=== PATIENT | female | born 1930 | race Caucasian/White ===

== ENCOUNTER → 2016-11-22 | Outpatient (CLI) | payer OTHER ==
[~2016-11-22] MED LIST: ACETAMINOPHEN325 M1 PO; ALEVE220 MG PO; AMITIZA 24 MCG24 MC1 PO; AMLODIPINE BESYL5 MG PO; APAP500; BACTRIM DS TAB1 EACH PO; BUTRANS1 EACH TD; COMBINATION CREAM; FENTANYL PA12 MCG/HR TP; FLECTOR PATCH1 EA TP; LACTULOSE10 GM/152 PO; LIDODERM 5%1 PATC1 TRANSDERM; LIDODERM 5%1 PATCH TOP; LISINOPRIL20 MG; LOPRESSOR25 PO; MACROBID 100 M100 M1 PO; NAPRELAN500 M1 PO; PAXIL10 MG; TYLENOL P.M. E1 EAC3 PO; TYLENOL PM EX-1 EACH PO; ULTRAM 50MG TAB50 MG PO; VIIBRYD10 MG; VIIBRYD10 MG PO; VOLTAREN GEL 1100 G1 TOP
== END ==
LOC: HYPER 07:09
DX: T81.33XA Disruption of traumatic injury wound repair, initial encounter (principal); L97.821 Non-pressure chronic ulcer of other part of left lower leg limited to breakdown of skin; I10 Essential (primary) hypertension; M19.90 Unspecified osteoarthritis, unspecified site; Z85.3 Personal history of malignant neoplasm of breast; Z85.51 Personal history of malignant neoplasm of bladder; Z87.891 Personal history of nicotine dependence

== ENCOUNTER → 2017-02-07 | Outpatient (CLI) | payer OTHER ==
[~2017-02-07] VITALS: Ht 154.9 cm; Wt 48.5 kg
[~2017-02-07] MED LIST changes: +MIRALAX255 GM PO
--- NOTE | ~2017-02-07 | HPC ---
[facility] [place] [address] PAIN MANAGEMENT CONSULTATION Name: BITA CLAY Room #: REG HARDIK Lanza.#: [id number] Admission: 02/07/17 Attend Phys: Miguel Olmos MD Discharge: Date of : 31 Report #: [id number] THIS REPORT FOR: //name// CC: Alison Olmos DATE OF SERVICE: 02/07/2017 Followup visit for chronic pain. New pain today in the right shoulder after a fall. The patient is here today with her daughter. She fell and injured her right upper back and shoulder. She has already fallen on that side, injured her right wrist and has a now healed clavicular fracture. She complains today of pain over the scapula, it is locally tender. It does not seem to involve the shoulder joint. MEDICATIONS: Butrans patch 5 mcg has been helpful. She also uses Flector patch once daily on her wrist and this has been very useful for someone who cannot take oral or systemic nonsteroidal anti-inflammatory drugs well. We have gone to great efforts to make sure that she has this available. The shoulder pain is locally tender overlying the spine and scapula. It radiates somewhat down into the deltoid region. PHYSICAL EXAMINATION: GENERAL: She is a ruslan 86-year-old pleasant, alert and oriented. She has local tenderness above the scapula. VITAL SIGNS: Her blood pressure is 139/76, heart rate 84, respirations 15, BMI is 20.2. EXTREMITIES: Examination of the right shoulder joint reveals good abduction, internal and external rotation is performed without difficulty. No tenderness around the joint capsule itself. IMPRESSION: Chronic scapular pain with suprascapular neuritis and myofascial pain. RECOMMENDATIONS: Suprascapular nerve block and trigger point injection. PROCEDURE: Skin was prepped with ChloraPrep. Skin was anesthetized and a 25-gauge needle was used to infiltrate above the scapula and the scapular notch, total of 8 mL of 0.5% bupivacaine mixed with 40 mg of triamcinolone. [facility] [address] [place] [address] PAIN MANAGEMENT CONSULTATION Name: BITA CLAY Room #: REG HARDIK Burden#: [id number] Admission: 02/07/17 Attend Phys: Miguel Olmos MD Discharge: Date of : 31 Report #: [id number] tolerated the procedure well. Pain was reduced at discharge and follow up as needed. By: [id number] Miguel Olmos MD /nt
[2017-02-07 12:44] VITALS: BP 139/76
== END ==
LOC: PAIN 06:44
DX: M25.511 Pain in right shoulder (principal); G58.8 Other specified mononeuropathies; M79.1 Myalgia; I10 Essential (primary) hypertension; Y93.89 Activity, other specified; Y92.89 Other specified places as the place of occurrence of the external cause; Y99.8 Other external cause status

== ENCOUNTER → 2017-08-03 | Outpatient (CLI) | payer OTHER ==
[~2017-08-03] VITALS: Ht 154.9 cm; Wt 48.8 kg
--- NOTE | ~2017-08-03 | HPC ---
[facility] [place] [address] [place] [address] PAIN MANAGEMENT CONSULTATION Name: BITA CLAY Room #: REG HARDIK LanzaLaura#: [id number] Admission: 08/03/17 Attend Phys: Mary Early MD Discharge: Date of : 31 Report #: [id number] THIS REPORT FOR: //name// CC: Alison Early DATE OF SERVICE: 08/03/2017 FOLLOWUP COMPLAINT: Pain in the lower portion of the back and kind of all over. FOLLOWUP HISTORY: The patient is an 87-year-old female who has been seen in the pain clinic in the past because of chronic pain and myofascial discomfort. At this juncture, she is having pain and discomfort, which is in the lower portion of her back. It is in the area of the posterior superior iliac spine area and the gluteus elisha bilaterally. She notes that the pain is limiting her ability to engage in activities. She feels that her pain is problematic. She had an epidural steroid injection about 4 years ago. She has returned to the pain clinic for evaluation with her daughter. PHYSICAL EXAMINATION: Blood pressure 161/79, pulse 79, respiratory rate 16, room air saturation 100, height 5 feet 1 inch, weight 107 pounds, BMI is 20. The patient is very feeble. Need some assistance with walking. She seem somewhat unstable on her feet. She has not fallen in the last 3 months. She notes pain and discomfort in the lower portion of her back on the left and right side. She denies pain radiating down into her legs at this juncture. Palpation of pain and discomfort in the left and right posterior superior iliac spine areas near the gluteus elisha and latissimus dorsi reproduce a significant component of her pain and discomfort. IMPRESSION: 1. Myofascial pain, low back area with reproduction of pain and discomfort through palpation in the area of the gluteus elisha and latissimus dorsi near the posterior superior iliac spine. 2. Significant arthritis. RECOMMENDATIONS: We discussed treatment options with the patient and her daughter. We explained that since she is not having pain or discomfort radiating down into her legs and trigger points are noted in her low back area, trigger point injections would be a reasonable option at this juncture. Risks and benefits of procedure were discussed with the patient and her daughter. They elect to proceed. PROCEDURE NOTE: The patient was placed in the sitting position. Her back was sterilely prepped with a chlorhexidine solution. The trigger point on the left near the posterior superior iliac spine and gluteus elisha/latissimus dorsi was [address] [address] PAIN MANAGEMENT CONSULTATION Name: BITA CLAY Room #: REG HARDIK Burden#: [id number] Admission: 08/03/17 Attend Phys: Mary Early MD Discharge: Date of : 31 Report #: [id number] palpated. This reproduced her discomfort. A 25-gauge needle was then advanced into the area of discomfort. The patient states that this did reproduce the pain and discomfort. Total of 40 mg triamcinolone and 8 mL of 0.25% bupivacaine was infiltrated. The contralateral right side was then sterilely prepped. A 25-gauge needle was advanced into the posterior superior iliac spine area. A reproduction of the patient's pain was noted. Total of 40 mg triamcinolone and 8 mL of 0.25% bupivacaine was injected. The patient tolerated the procedure well. She remained in the pain clinic for an appropriate amount of time. She will follow up in the near future as needed. A script for a Flector patch and Butrans patch were provided, patch was dispensed. She will follow up in the future as needed. Her daughter or she will call the pain clinic should they feel the need. We would like to thank you for letting us participate in her care. We hope she continues to improve. By: 1413 1620 Mary Early MD /DAVID
[2017-08-03 11:11] VITALS: BP 161/79
== END | disposition home or self-care (01) ==
LOC: PAIN 07:06
DX: M79.1 Myalgia (principal); M19.90 Unspecified osteoarthritis, unspecified site

== ENCOUNTER → 2017-09-15 | Outpatient (CLI) | payer OTHER ==
[~2017-09-15] VITALS: Ht 154.9 cm; Wt 48.0 kg
[~2017-09-15] MED LIST changes: +ARTHROTEC EC 51 EACH PO; +ASPIR 8181 MG PO; +BANOPHEN25 M1 PO; +CARBIDOPA-LEVO1 EAC1 PO; +CYMBALTA20 MG PO; +GABAPENTIN 100100 MG PO; +HOME MEDICATION TOP; +MOBIC7.5 MG PO; +VITAMIN B122500 MCG PO
--- NOTE | ~2017-09-15 | CRIT ---
[facility] [place] [address] [place] [address] CRITICAL CARE NOTE Name: BITA CLAY Room #: REG HARDIK Lanza.#: [id number] Admission: 09/15/17 Attend Phys: Miguel Olmos MD Discharge: Date of : 31 Report #: [id number] THIS REPORT FOR: //name// CC: Alison Olmos DATE OF SERVICE: 09/15/2017 CHIEF COMPLAINT: Low back pain with radiation into the hips. The patient returns to pain clinic today and is complaining of severe pain in her low back with radiation down into her hips. She also has chronic wrist and shoulder pain, which has been treated with medication and topical nonsteroidal anti-inflammatory drugs. She has a Butrans patch on, which we felt has provided some relief, but she has some constipation with it. She scores her pain as 10/10. PQRS reviewed. MEDICATIONS: Reviewed and reconciled. ALLERGIES: MORPHINE AND PROMETHAZINE. She does not have hypertension. She does not smoke nor use alcohol. She is receiving the opioid buprenorphine through a patch in the form of 5 mcg 7-day application. An opioid agreement has been established. In addition, she uses meloxicam and Flector patch. She is slender with a BMI of 20.0. PHYSICAL EXAMINATION: Flat affect is depressed and anxious. Blood pressure 171/83, heart rate 82, BMI is 20. She has tenderness in the back and positive straight leg raising bilaterally, reproducing discomfort into the buttocks, but no further. She has tenderness there. She has spondylosis of the spine with curvature appreciated and limited range of motion. IMPRESSION: Chronic low back pain with significant spondylosis and rotational scoliosis. She has degenerative disk disease at several levels, particularly at L4-L5 level. Mild spondylolisthesis. RECOMMENDATION: Epidural steroid injection under fluoroscopic guidance. Procedure was explained, the risks and benefits to the patient. She was taken to fluoroscopic suite for treatment, placed prone, skin prepped with ChloraPrep. Skin anesthetized over the L4-L5 interspace. A 20-gauge Tuohy epidural needle was advanced first attempt in the epidural space with loss of resistance. There [facility] [address] [place] [address] CRITICAL CARE NOTE Name: BITA CLAY Room #: REG [facility] Jenise#: [id number] Admission: 09/15/17 Attend Phys: Miguel Olmos MD Discharge: Date of : 31 Report #: [id number] was no blood or CSF aspirated. 1 mL of 0.5% lidocaine was injected along with 80 mg triamcinolone. She tolerated the procedure well and was observed for 45 minutes and discharged. Followup visit planned as needed. <ELECTRONICALLY SIGNED> By: Miguel Olmos MD 10/26/17 1640 1711 0124 Miguel Olmos MD /nt
[2017-09-15 13:29] VITALS: BP 171/83
== END | disposition home or self-care (01) ==
LOC: PAIN 07:32
DX: M54.16 Radiculopathy, lumbar region (principal); G89.29 Other chronic pain; M47.896 Other spondylosis, lumbar region; M51.36 Other intervertebral disc degeneration, lumbar region; M43.16 Spondylolisthesis, lumbar region; M41.86 Other forms of scoliosis, lumbar region; Z79.891 Long term (current) use of opiate analgesic; Z88.6 Allergy status to analgesic agent; Z88.8 Allergy status to other drugs, medicaments and biological substances

== ENCOUNTER → 2017-10-27 | Outpatient (CLI) | payer OTHER | LOC: MRI 15:05 | DX: M47.896 Other spondylosis, lumbar region (principal); M41.86 Other forms of scoliosis, lumbar region; M48.061 Spinal stenosis, lumbar region without neurogenic claudication ==

== ENCOUNTER → 2017-11-09 | Outpatient (CLI) | payer OTHER ==
[~2017-11-09] VITALS: Ht 160 cm; Wt 48.6 kg
--- NOTE | ~2017-11-09 | HPC ---
[facility] [address] [address] PAIN MANAGEMENT CONSULTATION Name: BITA CLAY Room #: REG HARDIK Lanza.#: [id number] Admission: 11/09/17 Attend Phys: Miguel Olmos MD Discharge: Date of : 31 Report #: [id number] THIS REPORT FOR: //name// CC: Miguel Florian MD DATE OF SERVICE: 11/09/2017 DATE OF REGISTRATION: 11/09/2017 The patient returns to the pain clinic today with her daughter. She used a bit of a hand wringer. She is worried about complaining about her pain. She scores her pain as a 10/10 and has multiple pain generators. Her pain is in her right wrist, right shoulder, low back. She has multiple osteoarthritic pain generators. We have been trying medications, but she is sensitive to nearly everything. We have transitioned to the nonsteroidal anti-inflammatory, meloxicam 7.5 mg taking one half tablet twice a day. We need to be cautious about that with her age and risks of GI bleeding. She also uses Flector patch, which we worked hard to try and obtain for her. She has been using the Butrans patch for opioid control and seems to tolerate that at 5 mcg. We have discussed a trial of increasing it to 10. She uses an Extra Strength Tylenol at bedtime. PHYSICAL EXAMINATION: She is anxious and depressed. Her blood pressure is 157/78, heart rate 89, respirations 16, BMI is 19. Multiple tenderness is noted in her neck, upper back, lower back, also in her wrist and in her right shoulder where she has decreased range of motion. IMPRESSION: 1. Osteoarthritis. 2. Chronic depression. 3. Management of high risk medications. RECOMMENDATIONS: We will keep trying. The patient is delightful and gentle soul. It is hard to watch her struggle. Unfortunately, other medications we have tried seemed to fail and she has too many diffuse pain generators to try and treat her with injections. Those that we have tried have not really provided much lasting relief other than the wrist, which has been helpful in the past. I have added Cymbalta 20 mg once a day to her regimen. It has known pain relieving benefits and I am hopeful that this will make a difference in her mood and perhaps her outlook as well as her pain. We will see her back in 3 months. All other medications were renewed under terms of our opioid agreement. <ELECTRONICALLY SIGNED> By: Miguel Olmos MD 12/05/17 1408 1659 26 Miguel Olmos MD /nt
[2017-11-09 12:59] VITALS: BP 157/78
== END ==
LOC: PAIN 07:10
DX: M19.90 Unspecified osteoarthritis, unspecified site (principal); F32.9 Major depressive disorder, single episode, unspecified; Z79.899 Other long term (current) drug therapy

== ENCOUNTER → 2018-01-10 | Outpatient (CLI) | payer OTHER ==
[~2018-01-10] MED LIST changes: -ASPIR 8181 MG PO; -BANOPHEN25 M1 PO; -CARBIDOPA-LEVO1 EAC1 PO; -GABAPENTIN 100100 MG PO; -HOME MEDICATION TOP; -VITAMIN B122500 MCG PO
== END ==
LOC: HYPER 06:45
DX: S51.812A Laceration without foreign body of left forearm, initial encounter (principal); I10 Essential (primary) hypertension; M19.90 Unspecified osteoarthritis, unspecified site; Z85.3 Personal history of malignant neoplasm of breast; Z85.51 Personal history of malignant neoplasm of bladder; Z87.891 Personal history of nicotine dependence; W19.XXXA Unspecified fall, initial encounter; Y93.89 Activity, other specified; Y92.89 Other specified places as the place of occurrence of the external cause; Y99.8 Other external cause status

== ENCOUNTER → 2018-02-27 | Outpatient (CLI) | payer OTHER ==
[~2018-02-27] VITALS: Ht 157.5 cm; Wt 45.0 kg
[~2018-02-27] MED LIST changes: +ASPIR 8181 MG PO; +VITAMIN B122500 MCG PO
--- NOTE | ~2018-02-27 | HPC ---
[facility] [address] [place] [address] PAIN MANAGEMENT CONSULTATION Name: BITA CLAY Room #: REG HARDIK LanzaLaura#: [id number] Admission: 02/27/18 Attend Phys: Miguel Olmos MD Discharge: Date of : 31 Report #: [id number] THIS REPORT FOR: //name// CC: Miguel Florian MD DATE OF SERVICE: 02/27/2018 Followup visit for upper back pain with myofascial components and bilateral sacroiliac joint pain. The patient returns with her daughter for renewal of her medication and also for injections. I provided with Cymbalta, and she is at the lowest dose I have seen at 10 mg. Her daughter breaks the capsule in half and spreads it on applesauce of the lowest dose, 20 mg capsule. I also provided with Butrans 5 mcg patches and these seem to be effective. We have been getting Flector patches for her, also, which we provide her as samples for the use on her wrist and this seems to help. I think she is better than she has been in the past. She has been more active. Her daughter said that she cleaned her garage this weekend. She does not seem quite as depressed and dramatic as she used to and I think the Butrans and Cymbalta combination seems to take credit for that. Today, she complains of pain along her right scapula. There are myofascial components with localized tenderness. She would like an injection there. Her pain is also in her low back. She has pain across her sacroiliac joints with very local tenderness, it does not radiate. PHYSICAL EXAMINATION AND PQRS REVIEW: She is a pleasant female with a history of significant osteoarthritis of the right wrist, left shoulder, right shoulder and spondylitic changes of the spine and sacroiliac joints. She is 5 feet 2 inches, 99 pounds with a BMI of 18.1, which is fairly normal for her. Her blood pressure is 143/93, heart rate 83 and she is not a fall risk. She has a history of hypertension. She is receiving Butrans patches, although she has not signed an opioid agreement. The patient has never smoked. Further physical exam findings revealed localized tenderness along the medial border of the right scapula. Pain is worse with use of her upper arm and reaching and grabbing. Specific trigger points are identified. Examination of the low back reveals pain with forward flexion, extension, rotation, but localized tenderness over the sacroiliac joints, it is fairly exquisite. Straight leg raising is negative for radicular symptoms. Sensation and strength [address] [address] PAIN MANAGEMENT CONSULTATION Name: BITA CLAY Room #: REG HARDIK Burden#: [id number] Admission: 02/27/18 Attend Phys: Miguel Olmos MD Discharge: Date of : 31 Report #: [id number] are normal in lower extremities. The Manpreet test is positive as well as Gaenslen's. IMPRESSION: Sacroiliac joint pain, bilateral and myofascial pain of the upper back. PLAN: I renewed her medications under terms of our written agreement. Injections today, sacroiliac joint, bilateral along with trigger point injection of the right scapula. The patient was taken to fluoroscopic suite, placed prone, skin prepped with ChloraPrep. Skin was anesthetized first on the right sacroiliac joint. A 25-gauge spinal needle was then advanced in the posterior inferior capsule. 0.25 mL of Omnipaque was injected to demonstrate an arthrogram. It was then followed by 1.5 mL of 0.25% bupivacaine mixed with 20 mg of triamcinolone. Needle was removed. Mirror image injection was then performed in the left using the same technique. She tolerated the injections well. She was then placed in the sitting position and then trigger points were identified along the medial border of the scapula. Each injected with a total of 3 mL of 0.5% bupivacaine mixed with a total of 10 mg of triamcinolone. A total of 15 mg of triamcinolone was utilized for these 2 injections. She was observed for a short time and discharged with prescriptions in hand. I plan to see her back in the pain clinic as needed. By: 1556 2111 Miguel Olmos MD /nt
[2018-02-27 12:50] VITALS: BP 143/93
== END | disposition home or self-care (01) ==
LOC: PAIN 06:46
DX: M53.3 Sacrococcygeal disorders, not elsewhere classified (principal); M79.1 Myalgia; G89.29 Other chronic pain; M19.90 Unspecified osteoarthritis, unspecified site; I10 Essential (primary) hypertension; Z88.8 Allergy status to other drugs, medicaments and biological substances; Z79.82 Long term (current) use of aspirin; Z79.899 Other long term (current) drug therapy
CPT/HCPCS: 20552; G0260

== ENCOUNTER → 2018-03-22 | Outpatient (CLI) | payer OTHER | LOC: RAD 12:25 | DX: J40 Bronchitis, not specified as acute or chronic (principal); M41.86 Other forms of scoliosis, lumbar region; I10 Essential (primary) hypertension ==

== ENCOUNTER 2018-06-04 14:25 | Inpatient (IN) | payer OTHER ==
[~2018-06-04] VITALS: Ht 160 cm; Wt 45.4 kg
--- NOTE | ~2018-06-04 | H ---
[facility] [place] [address] [address] HISTORY AND PHYSICAL Name: BITA CLAY Room #: 418-P ADM IN M.R.#: [id number] Admission: 06/04/18 Attend Phys: Conner Florian MD Discharge: Date of : 31 Report #: [id number] THIS REPORT FOR: //name// CC: Gino Callejas MD [facility] Miguel Florian MD DATE OF SERVICE: 06/04/2018 CHIEF COMPLAINT: Muscle spasms. HISTORY OF PRESENT ILLNESS: The patient is an 87-year-old female who about 3 days ago began noticing a foot tapping on the right side and repeated involuntary movements involving her right lower extremity and her right upper extremity. In fact, the symptoms do not involve the left side of her body whatsoever. No other significant symptoms. She did have a fall recently about a month ago. PAST MEDICAL HISTORY: Includes: 1. Breast cancer about 30 years ago. 2. Bladder cancer in the last 3-4 years (she was "clean" at her last cystoscopy and is not to return for a year; she had one dose of BCG and did not tolerate it and it was stopped and never repeated. She is on no other therapy for her bladder cancer). 3. Hypertension. 4. Generalized pain from osteoarthritis for which she follows with Dr. Miguel Olmos in the pain clinic. ALLERGIES: SHE IS ALLERGIC TO PROMETHAZINE, WHICH CAUSED HER CONFUSION AND MORPHINE, WHICH SHE WAS LISTED INTOLERANT. MEDICATIONS: Include vitamin B12 oral supplements, aspirin 81 mg chewable by mouth weekly, MiraLax 17 grams in water daily, naproxen half tablet by mouth daily p.r.n. pain, Tylenol/diphenhydramine half tablet at bedtime, lactulose 30 mL daily for constipation, Amitiza 24 mcg daily for chronic constipation, diclofenac patches daily, duloxetine 10 mg daily, and Butrans patch 5 mcg changed weekly. FAMILY HISTORY: Noncontributory. SOCIAL HISTORY: She is . She is a nonsmoker, nondrinker, has never used recreational drugs. Her daughter is with her during this visit today and she is very supportive. [facility] [address] [place] [address] HISTORY AND PHYSICAL Name: BITA CLAY Room #: 418-P [facility] IN M.R.#: [id number] Admission: 06/04/18 Attend Phys: Conner Florian MD Discharge: Date of : 31 Report #: [id number] REVIEW OF SYSTEMS: The patient denies any other significant new problems. In particular, there are no vision changes, no hearing changes, no headaches, no falls since that which happened in March and is documented in the Emergency Room visit of that date, no difficulty swallowing, no sore throat, no new neck pains. She has chronic back pain, which is unchanged. She has no shortness of breath or chest pain. She has no abdominal pain, no nausea or vomiting, no change in bowel or bladder habits recently. No vertigo, no confusion, and other than as listed in the history of present illness, no new symptoms. PHYSICAL EXAMINATION: VITAL SIGNS: Taken in the Emergency Room showed a pulse of 95 on arrival with a blood pressure of 95/74. The repeat blood pressure later on was significantly elevated at 173/79, respiratory rate on arrival was 18, temperature was 36.8 degrees Centigrade and the pulse oximetry on room air was 99%. The reported weight was 100 pounds. GENERAL: This is a well-developed, well-nourished elderly white female who is unable to lie still in bed, especially moving her right upper extremity. HEENT: The extraocular muscles are intact. Oropharynx is moist and pink without lesions or exudate. NECK: Supple. There is no adenopathy, thyromegaly or mass or bruit. LUNGS: Fairly clear bilaterally. CARDIAC: Reveals irregular rhythm without significant arrhythmia. ABDOMEN: Soft and benign. EXTREMITIES: Without cyanosis or clubbing or peripheral edema. Peripheral pulses easily palpated in all 4 distal extremities. NEUROLOGIC: The patient is alert. She is oriented to person, place and time. No hallucinations, no delusions. Affect is full. No focal deficits of sensation. She has a clearly difficulty with chorea involving the upper and lower extremities on the right side, athetosis not noted. Gait not reassessed. Cranial nerves 2-12 were intact. LABORATORY DATA: The patient had an EKG that was interpreted as sinus rhythm with left axis deviation, no evidence of infarct per ER note. I do not have access to the EKG itself at this time. On her chemistry, sodium is 125, potassium is 4.5, chloride is 91, bicarbonate is 28, BUN is 15, creatinine 0.9. The anion gap is 6 and slightly low. The estimated GFR is 59. The glucose nonfasting was 93, calcium was 9.2, magnesium was 2.3. The AST was 35, ALT was 32, alkaline phosphatase is 96 and those are all normal. CPK is slightly elevated at 334, but troponin was less than 0.06. The total protein was 6.6 and albumin was 3.7. On the CBC, white blood cell count was normal at 6900, hemoglobin is 12.5, hematocrit 35.4, red blood cell indices are normal. The differential shows 71% segmented neutrophils, 4% banded neutrophils, there are 12% lymphocytes, 10% monocytes, 3% eosinophils and the absolute neutrophil count was 5200. Urinalysis was completely normal and specific gravity was 1.010. CT scan of the head showed no acute intracranial process. 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 There is no family history of any conditions involving chorea. It is noteworthy that the patient was given Benadryl in the Emergency Room and had significant improvement in her symptoms. Current plan is to obtain MRI scan in the morning, have a formal Neurology consult (the Emergency Room physician spoke with Dr. Kasandra Agustin). Technically not an SSRI, duloxetine may have a role in her symptoms, but this appears unlikely given that she has been taking it for quite some time now and is on a ridiculously small dose of 10 mg per day. Nonetheless, it does provide her significant pain relief along with the Butrans patch and the Flector patch. 2. Hyponatremia, etiology is not clear. If she has syndrome of inappropriate antidiuretic hormone secretion, that might point to a renal or pulmonary or central nervous system problem. We will obtain chest x-ray and renal ultrasound tomorrow as well and will look at the serum and urine osmolality and electrolytes. 3. Hypertension. The highly variable readings in the Emergency Room deserve careful observation. I will not add antihypertensive medications at this time, but she may require them in the future. 4. History of malignancy of the breast and bladder. Formal staging especially of the bladder cancer might be useful. 5. Osteoarthritis with severe generalized pain syndrome. We will continue the patient's current regimen pending the rest of her workup at this time. <ELECTRONICALLY SIGNED> By: John Alvaregna MD 06/05/182016 26 07 John Alvarenga MD /nt
--- NOTE | ~2018-06-04 | EKG ---
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 : 1930 Requested By: Nina Reyes Order Number: [id number] MD: Jovani Huang Measurements Intervals [place] Rate: 81 P: 50 ID: [id number] QRS: -50 QRSD: 94 T: 42 QT: 407 QTc: 473 Interpretive Statements Sinus rhythm Left anterior hemiblock Compared to ECG 04/26/2018 16:05:12 atrial premature complexes are no longer present Electronically Signed On 06-05-2018 8:19:48 CDT by Jovani Huang [email or web address] <ELECTRONICALLY SIGNED> By: Jovani Huang MD, [facility] 06/05/18818 1714 171 Jovani Huang MD, [facility] /EPI
--- NOTE | ~2018-06-04 | HC ---
[facility] [place] [address] CONSULTATION Name: BITA CLAY Room #: 418-P [facility] IN M.R.#: [id number] Admission: 06/04/18 Attend Phys: Kathy Florian MD Discharge: 06/05/18 Date of : 31 Report #: [id number] THIS REPORT FOR: //name// CC: KATHY Florian HISTORY OF PRESENT ILLNESS: The patient is an 87-year-old female who presents with abnormal movements of the right side of the body. This began last and as the weekend progressed became worse. The patient has no history of movement disorder nor is there a history of movement disorder in the family. It only involves the right arm and leg. The patient states that she is able to eat. When she sleeps this goes away. I asked her if she was able to walk and got a mixed response with that. She has been on Benadryl 25 mg 3 times a day and that has been somewhat helpful. Yesterday, I had asked that duloxetine and the Butrans patch be discontinued. The duloxetine was discontinued, but her daughter did not want the Butrans patch removed, so the patient is still wearing it. Her daughter wants to know what is going to be given in place of this pain patch. Interestingly, the patient is not on any new medications at all. All of her medications she has been on for several years. The patient takes these medications for pain from arthritis. PAST MEDICAL HISTORY: Arthritis, hypertension, breast cancer, bladder cancer, broken collarbone. PAST SURGICAL HISTORY: Right mastectomy. MEDICATIONS: Buprenorphine 5 mcg patch every 7 days, Flector patch daily, duloxetine 20 mg daily, Amitiza 24 mcg daily, lactulose 30 mg daily, Tylenol PM at bedtime, Aleve half tablet daily, aspirin 81 mg daily, B12 1000 mcg daily. ALLERGIES: PROMETHAZINE, AND MORPHINE. PHYSICAL EXAMINATION: VITAL SIGNS: Temperature 37.1, pulse rate 84, respiratory rate 16, blood pressure 170/94, bedside pulse oximetry 98% on room air. NEUROLOGIC: Cranial nerves 2-12 are grossly intact. Motor exam demonstrates symmetrical strength in all 4 extremities with tone and bulk normal. 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 Coordination reveals intact [id number]. Gait was not tested. LABORATORY DATA: White blood cell count 6.9, hemoglobin 12.5, hematocrit 35.4, MCV 93.3, platelet count 216,000. Urinalysis negative. Chemistry: Sodium 136, potassium 4, chloride 99, carbon dioxide 29, BUN 11, creatinine 0.8, glucose 83. Liver functions normal with the exception of AST, which is 40. Serum protein electrophoresis pending. TSH 5.596. IMAGING STUDIES: MRI of the head demonstrates no acute abnormalities, [place] [address] CONSULTATION Name: BITA CLAY Room #: 418-P [facility] IN M.R.#: [id number] Admission: 06/04/18 Attend Phys: Kathy Florian MD Discharge: 06/05/18 Date of : 31 Report #: [id number] age-related findings including mild cerebral and cerebellar volume loss and microvascular disease are noted. IMPRESSION AND PLAN: This patient has dystonia. I have asked that the pain medications be held. She has been on these for years and they may not be related to the dystonia at all. I may try Sinemet 25/100 two to three times a day to see if this controls the dystonia. I do plan on drawing labs to look for treatable causes of dystonia and the patient will need to either follow up in my office or I will have to refer her to the [facility] at if these symptoms persist. I thank you for your kind referral of this most delightful lady. <ELECTRONICALLY SIGNED> By: Nicole Agustin DO 06/14/18 1155 [id number] [id number] Nicole Agustin DO /nt
[2018-06-04 14:28] VITALS: BP 95/74
[2018-06-04 16:08] LABS: HEMATOCRIT 35.4 % (37.0-47.0); HEMOGLOBIN 12.5 gm/dL (12.0-15.0); MCH 32.8 pg (26.0-34.0); MCHC 35.2 g/dL (28.0-37.0); MCV 93.3 fL (80.0-100.0); PLATELET COUNT 216 thou/uL (150-400); RBC 3.79 mil/uL (4.20-5.00); RDW 14.5 % (10.5-14.5); WBC 6.9 thou/uL (4.0-11.0)
[2018-06-04 16:18] LABS: CALCIUM 9.2 mg/dL (8.5-10.1); CREATININE 0.9 mg/dL (0.6-1.0); POTASSIUM 4.5 mmol/L (3.5-5.1)
[2018-06-04 16:24] LABS: ALBUMIN 3.7 g/dL (3.4-5.0); MAGNESIUM 2.3 mg/dL (1.8-2.4); TOTAL BILIRUBIN 0.5 mg/dL (<0.1-1.0); TOTAL PROTEIN 6.6 g/dL (6.4-8.2)
[2018-06-04 16:41] LABS: ABSOLUTE NEUTROPHILS 5.2 thou/uL (1.4-8.2)
[2018-06-04 17:12] LABS: URINE BILIRUBIN NEGATIVE (Negative); URINE BLOOD NEGATIVE (Negative); URINE CLARITY CLEAR; URINE COLOR YELLOW; URINE GLUCOSE-RANDOM* NEGATIVE (Negative); URINE KETONES NEGATIVE (Negative); URINE LEUKOCYTES-REFLEX NEGATIVE (Negative); URINE NITRITE-REFLEX NEGATIVE (Negative); URINE PROTEIN (DIPSTICK) NEGATIVE (Negative); URINE UROBILINOGEN 0.2 E.U./dl (0.2-1.0)
[2018-06-04 19:14] VITALS: BP 173/79
[2018-06-04 19:32] VITALS: BP 176/87
[2018-06-04 22:31] VITALS: BP 150/88
[2018-06-05 03:45] VITALS: BP 177/88
[2018-06-05 04:48] LABS: ALBUMIN 3.3 g/dL (3.4-5.0); ANION GAP 8 mmol/L (7-16); BUN 11 mg/dL (7-18); CALCIUM 9.2 mg/dL (8.5-10.1); CHLORIDE 99 mmol/L (98-107); CO2 29 mmol/L (21-32); CREATININE 0.8 mg/dL (0.6-1.0); DIRECT BILIRUBIN < 0.1 mg/dL (<0.1-0.3); GLUCOSE 83 mg/dL (74-106); SGOT 40 U/L (15-37); SGPT 35 U/L (30-65); TOTAL BILIRUBIN 0.3 mg/dL (<0.1-1.0); TOTAL PROTEIN 6.1 g/dL (6.4-8.2)
[2018-06-05 04:53] LABS: SODIUM 136 mmol/L (136-145)
[2018-06-05 05:18] LABS: URINE POTASSIUM-RANDOM* 25.5 mmol/L
[2018-06-05 07:18] VITALS: BP 170/94
[2018-06-05 16:00] VITALS: BP 182/69
[2018-06-05] MEDS ORDERED: GABAPENTIN 100100 MG PO (18:31)
[2018-06-05] MEDS ORDERED: CARBIDOPA-LEVO1 EAC1 PO (18:31)
[2018-06-05] MEDS ORDERED: HOME MEDICATION TOP (18:31)
[2018-06-05] MEDS ORDERED: BANOPHEN25 M1 PO (18:31)
[2018-06-05 18:52] VITALS: BP 182/69
[2018-06-07 17:12] LABS: ANA INTERPRETATION Negative (())
[2018-06-08 18:09] LABS: M-SPIKE Not Observed g/dL (Not Observed)
== END 2018-06-05 19:30 | disposition home health service (06) | DRG 57 ==
LOC: ER 14:25 → EROBS 17:07 → 4E 17:07
PROVIDERS: Internal Medicine; Physician Assistant; Psychiatry & Neurology Neurology
DX: G25.5 Other chorea (principal); E87.1 Hypo-osmolality and hyponatremia; G24.9 Dystonia, unspecified; M19.90 Unspecified osteoarthritis, unspecified site; I10 Essential (primary) hypertension; F03.90 Unspecified dementia, unspecified severity, without behavioral disturbance, psychotic disturbance, mood disturbance, and anxiety; Z85.51 Personal history of malignant neoplasm of bladder; Z90.11 Acquired absence of right breast and nipple; Z79.82 Long term (current) use of aspirin; Z79.899 Other long term (current) drug therapy; Z88.8 Allergy status to other drugs, medicaments and biological substances; Z88.5 Allergy status to narcotic agent; Z85.3 Personal history of malignant neoplasm of breast
CPT/HCPCS: 10183

== ENCOUNTER 2018-09-21 18:55 | Emergency (ER) | payer OTHER ==
[~2018-09-21] VITALS: Ht 160 cm; Wt 46.3 kg
[~2018-09-21 18:55] MED LIST changes: +BANOPHEN25 M1 PO; +CARBIDOPA-LEVO1 EAC1 PO; +GABAPENTIN 100100 MG PO; +HOME MEDICATION TOP
[2018-09-21 19:58] LABS: HEMATOCRIT 38.2 % (37.0-47.0); HEMOGLOBIN 13.3 gm/dL (12.0-15.0); MCHC 34.9 g/dL (28.0-37.0); MCV 91.8 fL (80.0-100.0); PLATELET COUNT 190 thou/uL (150-400); RBC 4.16 mil/uL (4.20-5.00); RDW 13.8 % (10.5-14.5); WBC 4.2 thou/uL (4.0-11.0)
[2018-09-21 20:08] LABS: ANION GAP 8 mmol/L (7-16); BUN 12 mg/dL (7-18); CALCIUM 8.8 mg/dL (8.5-10.1); CHLORIDE 91 mmol/L (98-107); CO2 28 mmol/L (21-32); CREATININE 0.8 mg/dL (0.6-1.0); GLUCOSE 108 mg/dL (74-106); POTASSIUM 4.3 mmol/L (3.5-5.1); SODIUM 127 mmol/L (136-145)
[2018-09-21 20:13] LABS: PROTIME 9.9 Seconds (9.3-11.4)
[2018-09-21 20:16] LABS: ALBUMIN 3.6 g/dL (3.4-5.0); SGOT 24 U/L (15-37); SGPT 31 U/L (30-65); TOTAL BILIRUBIN 0.5 mg/dL (<0.1-1.0); TOTAL PROTEIN 6.7 g/dL (6.4-8.2); TROPONIN-I <0.06 ng/mL (<0.06)
[2018-09-21 20:26] LABS: ABSOLUTE NEUTROPHILS 2.7 thou/uL (1.4-8.2); ANISOCYTOSIS 2+
[2018-09-21 20:27] LABS: LARGE PLATELETS OCCASIONAL
[2018-09-21] MEDS ORDERED: CLONIDINE0.1 PO (21:18)
[2018-09-21 21:37] VITALS: BP 186/85
--- NOTE | 2018-09-21 22:26 | EKG ---
[address] [address] ELECTROCARDIOGRAM REPORT Name: BITA CLAY Room #: DEP SARABJIT Burden#: [id number] Admission: 09/21/18 Attend Phys: Discharge: 09/21/18 Date of : 31 Report #: [id number] THIS REPORT FOR: //name// [facility] ED Test Date: 2018-09-21 Test Time: 20:23:18 Pat Name: BITA CLAY Department: Room: Gender: F Clean Energy Policy Analyst: DKENDRICK1 : 1930 Requested By: Kyle Lopez Order Number: [id number] MD: Rodrigo Yeh Measurements Intervals [place] Rate: 85 P: 62 NM: 196 QRS: -45 QRSD: 94 T: 49 QT: 416 QTc: 495 Interpretive Statements Sinus rhythm Abnormal R-wave progression, early transition Inferior infarct, old Compared to ECG 06/04/2018 17:14:07 Myocardial infarct finding now present Left anterior fascicular block no longer present Electronically Signed On 09-21-2018 22:25:52 STATION EXAMINER by Rodrigo Yeh [email or web address] <ELECTRONICALLY SIGNED> By: Rodrigo Yeh MD 09/21/185 22 22 Rodrigo Yeh MD /EPI
== END 2018-09-21 21:37 | disposition home or self-care (01) ==
LOC: ER 18:55
PROVIDERS: Emergency Medicine
DX: I10 Essential (primary) hypertension (principal); E87.1 Hypo-osmolality and hyponatremia; J06.9 Acute upper respiratory infection, unspecified; M19.90 Unspecified osteoarthritis, unspecified site; Z88.8 Allergy status to other drugs, medicaments and biological substances; Z88.5 Allergy status to narcotic agent; Z90.11 Acquired absence of right breast and nipple; Z85.51 Personal history of malignant neoplasm of bladder

== ENCOUNTER 2019-10-08 15:57 | Inpatient (IN) | payer OTHER ==
[~2019-10-08] VITALS: Ht 160 cm; Wt 51.3 kg
--- NOTE | ~2019-10-08 | H ---
[facility] [place] [address] HISTORY AND PHYSICAL Name: BITA CLAY Room #: 405-P ADM IN M.R.#: [id number] Admission: 10/08/19 Attend Phys: John Alvarenga MD Discharge: Date of : 31 Report #: [id number] THIS REPORT FOR: //name// CC: John Florian DATE OF SERVICE: 10/08/2019 CHIEF COMPLAINT: Passing blood clots with the stool. HISTORY OF PRESENT ILLNESS: Over the last several days, the patient (89 years old) has noticed large dark blood clots when she has a bowel movement. She came to the office today with her daughter who had taken pictures of them with her cell phone and indeed it appears like there are multiple large clots of blood in the toilet. She has never had this happen before. Other than that, her bowel movements are within her broad range of normal. She does not have abdominal pain nor change in appetite. She has never had a colonoscopy nor an EGD. She has not had known gastric ulcers or bleeding from the stomach or the colon in the past. She does take one Aleve tablet daily for her spinal stenosis. She does have chronic constipation and takes MiraLax every day in the morning to maintain regularity. PAST MEDICAL HISTORY: Most significant for spinal stenosis and chronic back pain. She used to be seen at the pain clinic for upper back pain as well as bilateral sacroiliac joint pain, along with myofascial extremity pain components. For the last year and a half, she has discontinued opioid medications and managed her discomfort with Tylenol and Aleve. She was admitted to [facility] 06/05/2018 with dystonia from her pain medications, which at that time were Butrans, Flector and duloxetine. Carbidopa/levodopa was recommended as well as discontinuing the offending medications. There was hyponatremia of 125. The patient discontinued those medications, but at home over the next several days, the symptoms persisted and she was seen at [facility] where a remote left caudate stroke on MRI scan was felt to be the source of her involuntary muscle movements and numbness since that time. One dose of IV Haldol in the Emergency Room stopped the abnormal movements and they have not returned. She has had a history of bladder cancer treated with chemotherapy, and a right mastectomy for breast cancer. She has intermittent hypertension and untreated hyperlipidemia. She has chronic hyponatremia with serum sodium generally in the 124 range with a chloride of 84, but she tolerates this well. She has intermittent bacteriuria that at times is symptomatic. [facility] [address] [place] [address] HISTORY AND PHYSICAL Name: BITA CLAY Room #: 405-P [facility] IN M.R.#: [id number] Admission: 10/08/19 Attend Phys: John Alvarenga MD Discharge: Date of : 31 Report #: [id number] FAMILY HISTORY: Noncontributory. SOCIAL HISTORY: She does not drink nor smoke and lives with her daughter. CURRENT MEDICATIONS: 1 baby aspirin daily, half of a Tylenol PM at bedtime to help with sleep, 1/2 of an Aleve twice daily for her back pain, a moderate dose of MiraLax every day for regularity, extra strength Tylenol as needed for her back pain and she takes one-half of 5 mg Bystolic tablet (prescribed by Dr. Callejas) daily in the morning. ALLERGIES: MORPHINE CAUSES HALLUCINATIONS AND she is very sensitive to many medications. PHYSICAL EXAMINATION: She is in the company of her daughter in my office. GENERAL: She is awake and alert and oriented. VITAL SIGNS: Her blood pressure is 139/79 with a pulse of 75. HEENT: Unremarkable. There is no significant wax in the ears. NECK: Negative. CHEST: The lungs are clear. CARDIOVASCULAR: The heart tones are normal. ABDOMEN: Soft and nontender, without hepatosplenomegaly or masses. EXTREMITIES: There is no significant edema in the lower extremities. LIMITED PERINEAL/PELVIC EXAM: There are no abnormalities to the external genitalia, the urethral orifice has a tiny caruncle and is otherwise normal. The introitus appears normal with a mild rectocele, and limited digital examination of the vaginal area finds no abnormalities and no blood. Note is made that she states she still has her uterus and ovaries intact and that has been many years since a formal pelvic exam. The rectum appears normal, limited digital examination of the rectum was normal with the exception of a large amount of soft melanotic stool with maroon coloring as well on the gloved finger. There was no discomfort on any of these examinations and no masses were identified. ASSESSMENT: 1. New onset of rectal bleeding with melanotic stool over the last several days with melena in the rectum confirmed on digital exam. 2. Chronic low back pain and spinal stenosis. 3. Multifocal myofascial pain. 4. Labile hypertension. 5. Untreated hyperlipidemia. 6. Distant history of a small left caudate stroke, manifested with a brief movement disorder that was stopped as noted above. 7. Chronic stable hyponatremia. 8. Chronic bacteriuria with intermittent symptoms. PLAN: The patient requires admission to the hospital for an inpatient medical [facility] [address] [place] [address] HISTORY AND PHYSICAL Name: BITA CLAY Room #: 405-P [facility] IN Jenise#: [id number] Admission: 10/08/19 Attend Phys: John Alvarenga MD Discharge: Date of : 31 Report #: [id number] stay for monitoring of further episodes of rectal bleeding, assuring that she has stable vascular status, and intravenous fluids in case she is anemic. GI consultation has been requested for a colonoscopy and possibly an EGD to identify the source of the bleeding. The patient and her daughter both request that she be a full code blue. By: 1837 [id number] Conner Florian MD /ashli
[~2019-10-08 15:57] MED LIST changes: +CLONIDINE0.1 PO
--- NOTE | 2019-10-08 17:21 | NUR ---
PT ARRIVED ON UNIT FROM THE ER IN WHEELCHAIR. PT AOX4, VSS, NO C/O PAIN AT THIS TIME. PT REPORT LEFT HEEL IS TENDER FROM AN OLD PRESSURE ULCER THATS NOW SCABBED OVER. PT REPORTS HER HOME HEALTH NURSE CHANGES DRESSING ON HER LEFT HEEL TWICE PER WEEK. PT CURRENTLY ON CLEAR LIQUID DIET, GI PREP WILL START WILL MIRALAX NOW. BSC AT BESIDE, NURSE EDUCATED PT PUBLIC ACCOUNTANT LIGHT. PT DAUGHTER WITH PT AT THIS TIME. FALL PRECAUTIONS IN PLACE. WILL CONTINUE TO MONITOR.
[2019-10-08 17:43] LABS: ABSOLUTE NEUTROPHILS 4.4 thou/uL (1.4-8.2); BASOPHILS 0.6 % (0.0-2.0); EOSINOPHILS 3.3 % (0.0-3.0); HEMATOCRIT 33.3 % (37.0-47.0); HEMOGLOBIN 11.3 gm/dL (12.0-15.0); LYMPHOCYTES 14.6 % (24.0-44.0); MCH 32.6 pg (26.0-34.0); MCHC 33.8 g/dL (28.0-37.0); MCV 96.5 fL (80.0-100.0); MONOCYTES 11.3 % (1.0-8.0); PLATELET COUNT 244 thou/uL (150-400); POLYS 70.2 % (36.0-66.0); RBC 3.45 mil/uL (4.20-5.00); WBC 6.3 thou/uL (4.0-11.0)
[2019-10-08 17:50] LABS: CALCIUM 8.9 mg/dL (8.5-10.1); CREATININE 0.8 mg/dL (0.6-1.0); POTASSIUM 4.1 mmol/L (3.5-5.1)
[2019-10-08 17:56] LABS: ALBUMIN 4.1 g/dL (3.4-5.0); TOTAL BILIRUBIN 0.5 mg/dL (<0.1-1.0); TOTAL PROTEIN 7.2 g/dL (6.4-8.2)
--- NOTE | 2019-10-08 22:22 | NUR ---
PT CARE ASSUMED WITH PT IN BED AT 1900 WITH DAUGHTER AT BEDSIDE WITH PT.PT ADMISSION COMPLETED AND ORDERS STARTED.PT REFUSED NURSE FROM STARTING IV ,DR MALIK PAGED AND INFORMED AND HE SAID HE WILL BE COMING IN TO SEE PT.PT DRANK ALL MIRALAX FOR BOWEL PREP AND BISACODYL.FALL PRECAUTION IN PLACE.WILL CONTINUE TO MONITOR PT
[2019-10-09 05:41] LABS: ALBUMIN 4.5 g/dL (3.4-5.0); CALCIUM 9.1 mg/dL (8.5-10.1); CREATININE 0.7 mg/dL (0.6-1.0); POTASSIUM 4.2 mmol/L (3.5-5.1); TOTAL BILIRUBIN 0.6 mg/dL (<0.1-1.0); TOTAL PROTEIN 7.2 g/dL (6.4-8.2)
[2019-10-09 06:00] LABS: HEMATOCRIT 36.8 % (37.0-47.0); HEMOGLOBIN 12.1 gm/dL (12.0-15.0); MCH 31.7 pg (26.0-34.0); MCHC 32.8 g/dL (28.0-37.0); MCV 96.7 fL (80.0-100.0); RBC 3.81 mil/uL (4.20-5.00); RDW 13.9 % (10.5-14.5); WBC 7.3 thou/uL (4.0-11.0)
[2019-10-09 06:30] VITALS: BP 191/98
[2019-10-09 08:42] VITALS: BP 186/88
[2019-10-09 10:48] VITALS: BP 149/74
--- NOTE | 2019-10-09 19:20 | NUR ---
ASSUMD CARE OF PATIENT AT 0715, PATIENT ALERT AND ORIENTED X 4. UP WITH ASSIST X 1 TO BR OR BSC, WEAKNESS NOTED. PATIENT WAS NPO THIS AM FOR COLONOSCOPY/EGD. NEW IV PER IV TEAM PRIOR TO PROCEDURE, LEFT UPPER ARM WITH NS AT 75CC/HR. PATIENT DENIES PAIN OR NAUSEA THIS SHIFT. NO BLEEDING FOUND AND 2 POLYPS FOUND. DAUGHTER HAS BEEN AT BEDSIDE MOST OF THE DAY. WILL CONTINUE TO MONITOR.
[2019-10-09 20:42] VITALS: BP 157/85
--- NOTE | 2019-10-10 05:40 | NUR ---
Assumed pt care at 1900. Pt is A/OX4, VSS.Up with AX1/RW to BR. Pt very anxious about dc time d/t the weather. rounded at HS and okay with pt dc depending on labs this am. Pt denies pain on assessment. Had a colonoscopy/EGD yesterday reports no leaking of BM's now. C/o generalized pain everywhere medicated with Tylenol with relief reported. IVF dc'd wanted IV taken out as well;informed important of leaving it until dc time and verbalized understanding. Fall precautions implemented,needs reminders to call for help before getting OOB.
[2019-10-10 06:10] VITALS: BP 138/53
[2019-10-10 06:17] LABS: HEMATOCRIT 31.2 % (37.0-47.0); HEMOGLOBIN 10.6 gm/dL (12.0-15.0); MCH 32.8 pg (26.0-34.0); MCHC 33.9 g/dL (28.0-37.0); MCV 96.6 fL (80.0-100.0); RBC 3.23 mil/uL (4.20-5.00); WBC 7.3 thou/uL (4.0-11.0)
[2019-10-10 06:51] LABS: CALCIUM 8.4 mg/dL (8.5-10.1); CREATININE 0.7 mg/dL (0.6-1.0); POTASSIUM 4.1 mmol/L (3.5-5.1)
[2019-10-10 09:50] VITALS: BP 138/53
--- NOTE | 2019-10-10 09:55 | NUR ---
ASSUMED CARE AT 0700. PT VSS, NO C/O PAIN AT THIS TIME. PT REPORTS SHE WAS READY TO GO HOME BEFORE SNOW STORM. PT DAUGHTER WAS HERE TO TRANSPORT PT HOME. DR. MALIK WAS CALLED AND INFORMED THE PT IT WOULD BE 1 HOUR BEFORE HE COULD GET TO HIS OFFICE TO PUT IN D/C ORDERS. PT REPORTS SHE WAS UNABLE TO WAIT [address] MALIK APPROVED THE DISCHARGE OF PT. NURSE EXPLAINED TO PT TO CALL DR. MALIK TO SET UP APPOINTMENT IN 1 WEEK AND HER MEDICATION WAS UNCHANGED. PT AND DAUGHTER VERBALIZED UNDERSTANDING AND WAS TRANSPORTED OUT BY WITH VOLUNTEER. IV WAS REMOVED FROM PT LEFT ARM.
--- NOTE | 2019-10-11 13:08 | PATH ---
[facility] [address] [address] [place] [address] PATHOLOGY RPT PROCEDURE Name: BITA REID Room #: 405-P DIS IN M.R.#: [id number] Admission: 10/08/19 Date of : 31 Discharge: 10/10/19 Report #: [id number] Path Case #: [id number] L[facility] Accession Number: [id number] . 01 Material submitted: . PART A: stomach - BX OF ANTRUM PART B: colon - POLYP AT ASCENDING COLON X2. Modifiers: ascending . 01 Clinical history: . Pre-op diagnosis: Melena Post-op diagnosis: Hiatal hernia, colon polyps, diverticulosis, internal hemorrhoids A: R/O H. pylori . 02 Diagnosis: A. Gastric biopsy "biopsy of antrum": - Mild chronic reactive gastropathy. - The immunoperoxidase stain for Helicobacter pylori is negative. . B. Colonic mucosa "polyp at ascending colon x2": - Tubular adenomas. - There is no evidence of high-grade dysplasia or malignancy. (SHA:pit 10/11/2019) QTP 10/11/2019 0912 Local . 02 Electronically signed: . Parish Franks MD, Pathologist NPI- [id number] . 01 Gross description: . A. The specimen is received in formalin, labeled "Bita Reid, biopsy of antrum to R/O H. pylori". Received are two segments of pale johnston soft tissue ranging in size from 0.2 to 0.4 cm in maximum dimensions. The specimen is submitted entirely in cassette A1. . B. The specimen is received in formalin, labeled "Bita Reid, polyp at ascending colon". Received are three segments of pale johnston soft tissue ranging in size from 0.3 to 0.7 cm in maximum dimensions. The surgical margin of the larger segment is inked and the segment is bisected. The specimen is submitted entirely in cassette B1. (CAA; 10/10/2019) QA/[facility] 10/10/2019 1438 Local . 02 Pathologist provided ICD-10: K31.9, D12.2 . 02 [place] [address] PATHOLOGY RPT PROCEDURE Name: BITA REID Room #: 405-P DIS IN M.R.#: [id number] Admission: 10/08/19 Date of : 31 Discharge: 10/10/19 Report #: [id number] Path Case #: [id number] Specimen Comment: A courtesy copy of this report has been sent to [phone] Specimen Comment: [id number] Specimen Comment: Report sent to DR MALIK / DR RAMIREZ Performed at: [address], [place] [id number] MD Robert Tidwell MD Phone: [phone] Performed at: [address] [id number] MD Lily Parra MD Phone: [phone]
== END 2019-10-10 09:00 | disposition home or self-care (01) | DRG 378 ==
LOC: 4W 15:57 → 4N 15:57 → ENTRNSPT 10-10 09:12 → EDTRNSPTSTS 10-10 09:15
PROVIDERS: Internal Medicine; Nurse Practitioner; ADMIT Internal Medicine
PROC: 0DB78ZX Excision of Stomach, Pylorus, Via Natural or Artificial Opening Endoscopic, Diagnostic (ICD-10-PCS; principal; 2019-10-08)
PROC: 0DBK8ZX Excision of Ascending Colon, Via Natural or Artificial Opening Endoscopic, Diagnostic (ICD-10-PCS; principal; 2019-10-08)
DX: K57.31 Diverticulosis of large intestine without perforation or abscess with bleeding (principal); E87.1 Hypo-osmolality and hyponatremia; K92.1 Melena; K59.09 Other constipation; M48.00 Spinal stenosis, site unspecified; M54.9 Dorsalgia, unspecified; G89.29 Other chronic pain; E78.5 Hyperlipidemia, unspecified; M79.18 Myalgia, other site; I10 Essential (primary) hypertension; R82.71 Bacteriuria; K63.5 Polyp of colon; K44.9 Diaphragmatic hernia without obstruction or gangrene; K64.8 Other hemorrhoids; Z86.73 Personal history of transient ischemic attack (TIA), and cerebral infarction without residual deficits; Z90.11 Acquired absence of right breast and nipple; Z85.51 Personal history of malignant neoplasm of bladder; Z88.5 Allergy status to narcotic agent; Z88.8 Allergy status to other drugs, medicaments and biological substances; Z79.82 Long term (current) use of aspirin; Z79.899 Other long term (current) drug therapy
CPT/HCPCS: 10790; 62110; 62900; 70005

== ENCOUNTER 2019-10-19 06:06 | Inpatient (IN) | payer OTHER ==
[~2019-10-19] VITALS: Ht 160 cm; Wt 51.6 kg
--- NOTE | ~2019-10-19 | HC ---
[facility] [place] [address] CONSULTATION Name: BITA CLAY Room #: 214-P ADM IN M.R.#: [id number] Admission: 10/19/19 Attend Phys: Conner Florian MD Discharge: Date of : 31 Report #: [id number] THIS REPORT FOR: cc: Conner Florian MD, Stanley P. MD Smithson, David G. MD ~ CC: Conner Florian DATE OF SERVICE: 10/22/2019 HISTORY OF PRESENT ILLNESS: The patient is an 89-year-old white female who has a Life Alert in her home, which was activated. She was found to be confused, had multiple bruises including her right forehead. She was unable to ambulate. She was diagnosed with a syncopal episode with a closed head injury. CT of the brain did not show any intracranial bleeding. She also has a right groin injury. She is noted to have a seizure disorder and had an abnormal EEG this admission with an abnormality over the left temporoparietal area consistent with a structural abnormality. She also has had some acute blood loss anemia, thought to be secondary to a diverticular bleed with GI and Surgery following. The patient has had a significant decline from her premorbid functional status and we are seeing her in rehabilitation medicine consultation. PAST MEDICAL HISTORY: Includes spinal stenosis with chronic low back pain. She has a history of dystonia that she has had from medications. She has had a past history of left caudate nucleus CVA back in 05/2018 and had some dystonia, thought related to that stroke, which was stopped with Haldol IV per report. She also has a history of a right mastectomy for breast cancer. She is status post chemotherapy. She has a history of chronic hyponatremia and intermittent hypertension. MEDICATIONS: Please see the full medication listing. FAMILY HISTORY: Noncontributory. MEDICATIONS: Please see the MAR. ALLERGIES: MORPHINE CAUSES HALLUCINATIONS. SOCIAL HISTORY: Lives in a split level house. There is a stair glide on some of the levels. She is a premorbid walker ambulator. Daughter is closely involved. Works at [employer], checks in over the noon hour daily on the patient. REVIEW OF SYSTEMS: Did not offer any current complaints of chest pain, shortness of breath or abdominal discomfort. PHYSICAL EXAMINATION: [address] [address] CONSULTATION Name: BITA CLAY Room #: 214-P [facility] IN M.R.#: [id number] Admission: 10/19/19 Attend Phys: Conner Florian MD Discharge: Date of : 31 Report #: [id number] GENERAL: She is a pleasant 89-year-old white female in no obvious distress. VITAL SIGNS: Last recorded temperature 97.9, pulse 86, respirations 16, and blood pressure 131/68. The patient is alert. HEAD, EYES, EARS, NOSE, AND THROAT: Does reveal some forehead ecchymosis. NEUROLOGIC: Facies are symmetric. She follows basic 1 step commands. Tends to defer some answers to her daughter. There is some latency to her responses. She has an ecchymosis over her right elbow. EXTREMITIES: Functional range of motion of the upper extremity strength is grade 3+ to 4-/5. DTRs are trace to 1. Lower extremities, no focal calf swelling, functional range of motion, strength is grade 3+ to 4-/5. DTRs are trace to 1. She has been min assist with basic ADLs and has been contact guard to ambulate a short distance 20 feet with decreased balance and noted to have a loss of balance while standing at the sink per OT. ASSESSMENT: An 89-year-old white female with the following problems: 1. Syncopal event with closed head injury. 2. Seizure disorder with abnormal EEG. 3. Multiple ecchymoses from fall. 4. Gastrointestinal bleed apparently diverticular bleed with acute blood loss anemia, being monitored. 5. Hypertension. 6. History of spinal stenosis. 7. Past history of a left caudate nucleus stroke. 8. Past medical history otherwise as noted above. RECOMMENDATIONS: The patient is a candidate for an acute in-hospital inpatient rehabilitation stay. Compliant and transferred to the acute inpatient rehab pastor and medically ready and a bed available. The patient indicates she has passed a volunteer here at [facility] and she is very motivated to come to rehabilitation and maximize her functional independence, so she can hopefully return back to the home setting. Discussion with the patient's daughter as well. By: 1116 1222 Tyler Lamas MD /PMT
--- NOTE | ~2019-10-19 | H ---
[facility] [place] [address] HISTORY AND PHYSICAL Name: BITA CLAY Room #: 214-P ADM IN M.R.#: [id number] Admission: 10/19/19 Attend Phys: Conner Florian MD Discharge: Date of : 31 Report #: [id number] THIS REPORT FOR: //name// CC: Conner Florian DATE OF SERVICE: 10/19/2019 CHIEF COMPLAINT: Syncope, hypotension, closed head injury. HISTORY OF PRESENT ILLNESS: Please see the Emergency Room dictation, and x-ray information was given to me by the Emergency Room physician. The EMS was summoned to the patient's home because her Life Alert device had been activated. They had to force entry into the home. The description is not available of how she was found other than she was confused and did not recognize the EMS personnel. She kept asking the same questions over and over. She reported having pain everywhere and repeated that she has had a spinal stenosis. In the Emergency Room, she was found to have multiple bruises indicating a complex fall and no further information was available about the fall. There is a bruise on the right forehead and a bruise along the course of the left upper arm. In the Emergency Room, she complained of point tenderness and pain in her right groin area and was unable to walk or weightbear because of that pain. Because of uncontrolled pain and because she is unable to weightbear or walk and because of the profound nature of her loss of consciousness/syncope, unprotected fall, admission is indicated to identify and treat her injuries (the injury to the right groin area is as of yet does not have an explanation) and rule out an arrhythmia or seizure as causes of the syncope and/or fall. PAST MEDICAL HISTORY: Significant for being admitted 10/08/2019 to 10/10/2019 for a brisk rectal bleeding that was felt to be from a bleeding diverticulum, and her EGD/colonoscopy were negative for causes of the bleeding. She has a past history most significant for spinal stenosis and chronic back pain. She has been followed at [facility] pain clinic for upper back pain as well as bilateral sacroiliac joint pain and myofascial extremity pain components. For the last year and a half, she discontinued her opioid medications and managed her discomfort with Tylenol and Aleve. She was admitted to [facility] on 06/05/2018 with dystonia from her pain medications, which at that time were Butrans, Flector, and duloxetine. The neurologist recommended that carbidopa/levodopa as well as discontinuing the offending agents and her hyponatremia was close to baseline of 125. These medications were discontinued, but over the next several days, the symptoms persisted and she continued to have chronic uncontrollable movements of her right leg that progressed to her right arm as well. She went to [facility] where under the Neurology directed intervention, a remote left caudate nucleus stroke was seen on MRI scanning. This was felt to be the source of her involuntary muscle [address] [address] HISTORY AND PHYSICAL Name: DANNABITA Room #: 214-P [facility] IN M.R.#: [id number] Admission: 10/19/19 Attend Phys: Conner Florian MD Discharge: Date of : 31 Report #: [id number] movements and numbness, and the movements were abruptly aborted with a single dose of IV Haldol administered in the Emergency Room. They have not returned. She has had a right breast mastectomy for breast cancer; history of bladder cancer, treated with chemotherapy; she has intermittent hypertension and untreated (by choice) hyperlipidemia. She has chronic hyponatremia with the serum sodium generally in the 124 range and a chloride generally in the 84 range, but has tolerated this well. She has intermittent asymptomatic bacteriuria. She had a presumed diverticular bleed last May. She has been given a diagnosis of SIADH. FAMILY HISTORY: Noncontributory. SOCIAL HISTORY: She does not drink nor smoke. She lives alone. Her daughter gives as a tremendous amount of assistance. She desires a full code blue. CURRENT MEDICATIONS: Baby aspirin daily, 1/2 of "Tylenol PM" at bedtime as needed for sleep, 1/2 an Aleve tablet in the morning and again in the evening for her chronic back pain, a moderate dose of MiraLax every day for regularity, Extra Strength Tylenol as needed for her back pain, and Bystolic 5 mg tablets taking one-half tablet (prescribed by her dean of men, Dr. Gino Callejas) in the morning. ALLERGIES: MORPHINE CAUSES HALLUCINATIONS. She is sensitive to many medications, she did have what might have been a dystonic reaction during her 06/05/2018 admission here at [facility] (as detailed above), but which ultimately turned out to have been caused by a remote left caudate nucleus lacunar stroke. REVIEW OF SYSTEMS: Negative except for the HPI. The patient is examined in the Emergency Room with her daughter present. She had just needed to get up to the commode to have a bowel movement, and had a "good" bowel movement, but moving off the ___ commode triggered intense low back pain and an intense increase in her usual low back pain, and she was hurting everywhere. PHYSICAL EXAMINATION: GENERAL: She is alert and oriented. There is a small bruise on her right forehead. HEENT: Negative. LUNGS: Clear. [facility] [place] [address] HISTORY AND PHYSICAL Name: BITA CLAY Room #: 214-P ADM IN M.R.#: [id number] Admission: 10/19/19 Attend Phys: Conner Florian MD Discharge: Date of : 31 Report #: [id number] HEART: Heart tones are normal and the rhythm is regular. BREASTS: Left radical mastectomy has been performed many years in the past and is well healed. The left breast was not examined. ABDOMEN: Soft, nontender, without hepatosplenomegaly or masses. EXTREMITIES: There is no cyanosis or edema in the lower extremities or ankles. Palpation along her lumbar spine is diffusely tender. Palpation in the right inguinal area directly over the pubic bone causes exquisite tenderness. Movement of the right hip joint also causes tenderness. There are several bruises along the course of the right arm, elbow and wrist. NEUROLOGIC: Screening neurological examination is intact. RADIOLOGY: To date is negative: Plain films of the pelvis and CT scan of the pelvis are also negative for acute fractures. Plain film of the right hip is also negative for acute fracture. Right convexity lumbar scoliosis is seen on the hip x-ray. The chest x-ray is negative. CT scan of the cervical spine shows chronic cervical spondylosis with no acute abnormalities. Her sodium is 132, creatinine 0.9, calcium mildly low at 8.4. Lactic acid and troponins are negative. EGFR is in her baseline range at 59. Hemoglobin is stable at 10.1, considering her GI bleed 2 weeks ago. Urinalysis is negative. ASSESSMENT: 1. Syncopal event of some kind that was quite sudden and resulted in significant injury. 2. Closed head injury. 3. Contusion to the left arm. 4. Right groin pain that makes her unable to walk. 5. Exacerbation or an additional acute pain of the lumbar spine. 6. Chronic lumbar spinal stenosis and chronic pain and scoliosis. 7. Hypertension, treated with 2.5 mg of Bystolic daily. 8. Chronic constipation. 9. MORPHINE CAUSES HALLUCINATIONS and she is intolerant or exquisitely sensitive to other narcotics. 8. Chronic hyponatremia. 9. History of a small left caudate nucleus stroke. 10. Other medical problems as in the history and physical above. PLAN: The patient lives independently at home and is unable to return home. The cause of the event has not been determined that could be a malignant arrhythmia or a seizure. Physical findings have suggests that the loss of consciousness was instantaneous. The fact that her device contacted the EMS and she was confused at that time, they came indicates a serious mechanism behind the event. In addition, her blood pressure dropped to the lower than 80 systolic, once or twice while being transported and she had another episode of [facility] [address] [place] [address] HISTORY AND PHYSICAL Name: CLAYBITA Room #: 214-P [facility] IN M.R.#: [id number] Admission: 10/19/19 Attend Phys: Conner Florian MD Discharge: Date of : 31 Report #: [id number] loss of consciousness while in the care of the EMS personnel. All these factors point towards an inpatient admission. She is also not capable of taking care of herself and is incapable of walking because of pain in the right groin from an injury from her fall. The patient wishes a full code blue, this was expressed in the company of her daughter who is her DPOA. By: [id number] Conner Florian MD /nt
[2019-10-19 06:08] VITALS: BP 184/71
[2019-10-19 06:29] LABS: ABSOLUTE NEUTROPHILS 3.6 thou/uL (1.4-8.2); BASOPHILS 0.7 % (0.0-2.0); EOSINOPHILS 3.3 % (0.0-3.0); HEMATOCRIT 30.6 % (37.0-47.0); HEMOGLOBIN 10.1 gm/dL (12.0-15.0); LYMPHOCYTES 27.8 % (24.0-44.0); MCH 32.4 pg (26.0-34.0); MCHC 33.2 g/dL (28.0-37.0); MCV 97.8 fL (80.0-100.0); MONOCYTES 11.6 % (1.0-8.0); PLATELET COUNT 288 thou/uL (150-400); POLYS 56.6 % (36.0-66.0); RBC 3.13 mil/uL (4.20-5.00); RDW 14.4 % (10.5-14.5); WBC 6.4 thou/uL (4.0-11.0)
[2019-10-19 06:36] LABS: ANION GAP 10 mmol/L (7-16); BUN 21 mg/dL (7-18); CALCIUM 8.4 mg/dL (8.5-10.1); CHLORIDE 98 mmol/L (98-107); CO2 24 mmol/L (21-32); CREATININE 0.9 mg/dL (0.6-1.0); GLUCOSE 106 mg/dL (74-106); POTASSIUM 4.4 mmol/L (3.5-5.1); SODIUM 132 mmol/L (136-145)
[2019-10-19 06:45] LABS: TROPONIN-I <0.06 ng/mL (<0.06)
--- NOTE | 2019-10-19 08:00 | EKG ---
[facility] [place] [address] ELECTROCARDIOGRAM REPORT Name: BITA CLAY [id number] Admission: 10/19/19 Attend Phys: Discharge: Date of : 31 Report #: [id number] THIS REPORT FOR: cc: Conner Florian MD, Stanley P. MD Couchonnal, Luis F. MD ~ THIS REPORT FOR: //name// [facility] ED Test Date: 2019-10-19 Test Time: 06:21:45 Pat Name: BITA CLAY Department: Room: Gender: F Maxillofacial Pathology: [id number] : 1930 Requested By: Juan Tobias Order Number: [id number] : Rodrigo Yeh Measurements Intervals [place] Rate: 86 P: 62 DE: 219 QRS: -33 QRSD: 90 T: 72 QT: 390 QTc: 467 Interpretive Statements Sinus rhythm Borderline prolonged DE interval LAE, consider biatrial enlargement Left axis deviation Abnormal R-wave progression, early transition Compared to ECG 09/21/2018 20:23:18 Left-axis deviation now present Myocardial infarct finding no longer present Electronically Signed On 10-19-2019 7:59:53 FLOW COORDINATOR by Rodrigo Yeh [email or web address] <ELECTRONICALLY SIGNED> By: Rodrigo Yeh MD 10/19/19 0759 0 0 Rodrigo Yeh MD /EPI
[2019-10-19 08:15] LABS: URINE BILIRUBIN NEGATIVE (Negative); URINE BLOOD NEGATIVE (Negative); URINE CLARITY CLEAR; URINE COLOR YELLOW; URINE GLUCOSE-RANDOM* NEGATIVE (Negative); URINE KETONES NEGATIVE (Negative); URINE LEUKOCYTES-REFLEX NEGATIVE (Negative); URINE NITRITE-REFLEX NEGATIVE (Negative); URINE PROTEIN (DIPSTICK) NEGATIVE (Negative); URINE SPECIFIC GRAVITY 1.015 (1.005-1.035); URINE UROBILINOGEN 0.2 E.U./dl (0.2-1.0)
--- NOTE | 2019-10-19 08:49 | NUR ---
PT UNABLE TO TOLERATE SITTING SIDE OF BED RIGHT SIDE PELVIS TOO PAINFUL TO MOVE, ASKED TO BE RETURNED TO SUPINE POSITION AFTER 5 MIN
[2019-10-19 12:14] VITALS: BP 151/66
[2019-10-19 12:38] VITALS: BP 151/87
[2019-10-19 13:40] VITALS: BP 147/59
[2019-10-19] MEDS ORDERED: BYSTOLIC10 MG PO (16:40)
[2019-10-19] MEDS ORDERED: ALIVE WOMEN'S1 EAC3 PO (16:41)
[2019-10-19] MEDS ORDERED: MAGNESIUM250 M1 PO (16:41)
[2019-10-19 18:08] LABS: HEMATOCRIT 21.9 % (37.0-47.0); MCH 32.6 pg (26.0-34.0); MCHC 33.5 g/dL (28.0-37.0); MCV 97.3 fL (80.0-100.0); RBC 2.25 mil/uL (4.20-5.00); RDW 14.2 % (10.5-14.5); WBC 6.1 thou/uL (4.0-11.0)
[2019-10-19 18:09] LABS: HEMOGLOBIN 7.3 gm/dL (12.0-15.0)
--- NOTE | 2019-10-19 18:33 | NUR ---
PT. ARRIVED AT FLOOR AROUND 1400; AOX4; C/O PAIN; 06/07; AOX4; DAUGHTER AT THE BED SIDE; C/O PAIN WHILE TRANSFER FROM CAR TO BED; EDUCATED ABOUT PAIN MANAGEMENT; ST. UNDERSTANDING; GONE FOR MRI; HAD ONE LARGE BM; BRIGHT RED STOOL; SOFT; FORM; MALODOURUS FLATUS; PHYSICIAN NOTIFIED; ORDERS RECEIVED; SR-ST ON THE MONITOR; LOW 100s; USED THE BEDSIDE COMMODE; PT. WEAK; NOT ABLE TO STAND UP STRAIGH; PHYSICIAN NOTIFIED; EDUCATED ABOUT USING BED KUMAR; EXTERNAL CATH ON PLACE; EDUCATED ABOUT IT; ST. UNDERSTANDING; ADMISSION PERFORMED; ASSESSMENT CHARGED; FOLLOWING POC; WILL PASS ON REPORT;
[2019-10-19 19:56] VITALS: BP 135/52; BP 1378/57
[2019-10-20 04:34] VITALS: BP 135/51
[2019-10-20 05:09] LABS: ALBUMIN 3.1 g/dL (3.4-5.0); CALCIUM 8.1 mg/dL (8.5-10.1); CREATININE 0.7 mg/dL (0.6-1.0); POTASSIUM 4.5 mmol/L (3.5-5.1); TOTAL BILIRUBIN 0.4 mg/dL (<0.1-1.0); TOTAL PROTEIN 5.2 g/dL (6.4-8.2)
[2019-10-20 05:10] LABS: HEMATOCRIT 18.8 % (37.0-47.0)
[2019-10-20 05:11] LABS: HEMOGLOBIN 6.4 gm/dL (12.0-15.0)
[2019-10-20 05:23] LABS: APTT 24.3 Seconds (24.5-32.8); PROTIME 10.3 Seconds (9.3-11.4)
[2019-10-20 07:15] VITALS: BP 150/78
--- NOTE | 2019-10-20 07:56 | NUR ---
ASSUMED PATIENT CARE AROUND 1919 PT WAS IN BED. STATED SHE WAS IN 10 PAIN. PT HAD DARK RED STOOL. PATIENT HAD 2 MORE STOOLS THAT BECAME REDDER IN COLOR AND CONSISTENCY WENT FROM SOFT FORM TO JELLY-LIKE. SPOKE WITH DR. RAMIREZ AND WAS GIVEN NEW ORDERS FOR PAIN MEDICATION AND A NM GI SCAN ORDER WAS PLACED ALONG WITH LABS. PT HAD SYNCOPAL EPISODE LASTING 30-45 SECONDS WHILE ANOTHER NURSE WAS PLACING IV. PT TELEMETRY DID NOT CHANGE WITH EPISODE AND PATIENT WAS ALERT ONCE COMPOSURE REGAINED. PT ALSO HAS ORDERS TO GIVE TRANSFUSION SHOULD HEMOGLOBIN DROP BELOW 7.0. ORDERS ALSO RECEIVED TO GET CENTRAL LINE ON PATIENT. CLOSELY MONITORING PATIENT FOR ANY CHANGE IN CONDITIONS.
[2019-10-20 10:06] VITALS: BP 125/67; BP 155/64
[2019-10-20 14:27] VITALS: BP 154/76; BP 155/71
--- NOTE | 2019-10-20 14:34 | NUR ---
VASCULAR ACCESS CONSULTED FOR PICC LINE. DISCUSSED BENEFITS AND RISKS WITH PT, VERBALIZED UNDERSTANDING. ORDER,CONSENT,HISTORY,MEDS AND LABS REVIEWED. DONALDO BASILIC WAS WIDELY PATENT WITH USG. 4FR DL PICC TRIMMED TO 46CM INSERTED TO 2CM EXTERNAL. STAT CXR OBTAINED CONFIRMED PLACEMENT IN SVC. PT TOLERATED WELL. PICC RELEASED FOR IMMEDIATE USE TO W[facility] VALENTINE PER PROTOCOL.
--- NOTE | 2019-10-20 14:52 | NUR ---
PT TOLERATED BLOOD TRANSFUSION OF UNIT ONE WELL.
--- NOTE | 2019-10-20 15:46 | NUR ---
REC REPORT ON PT, INTRO'D SELF, CHECKED BLOOD, BROUGHT A DRINK, DUMPED CLEAR URINE. PT IS A&0X4, SBA CURRENTLY, DAUGHTER AT BEDSIDE. PT STATES SHE DOES FEEL BETTER. REPORTS OF PT BEING PRE-MEDICATED PRIOR, PT IN GOOD SPIRITS. WILL CONTINUE TO MONITOR. ENCOURAGED BOTH TO USE CALL LIGHT FOR ANY NEEDS
--- NOTE | 2019-10-20 17:06 | NUR ---
SECOND BLOOD TRANSFUSION HUNG BY PREVIOUS NURSE: PREV RN NEEDED TO LEAVE THE FLOOR AND THIS RN TOOK OVER CARE, SECOND BAG OF RBS HUNG AND VS DONE, PT FINISHED UP THIS BAG AT APPROX 1700; COULD NOT FIND THE INTERVENTION FOR THIS. NO ILL EFFECTS. VS ARE FOLLOW: 99 02 RA, RESP 16, TEMP 97.6 ORAL B/P 150/69 RUE HR 103
[2019-10-20 17:12] VITALS: BP 150/69
[2019-10-20 20:30] VITALS: BP 156/68
[2019-10-21 04:06] VITALS: BP 187/92
--- NOTE | 2019-10-21 04:36 | NUR ---
ASSUMED PT CARE AT 1900. PT IS ALERT AND ORIENTED. NO SIGN OF DISTRESS NOTED IN PT. PT IS LAYING IN BED. FALL PRECAUTION IN PLACE. ASSESSMENT COMPLETED AAND DOCUMENTED. DARK RED STOOL NOTICIED. TYLENOL ADMINISTERED UPON REQUEST. VITAL SIGNS STABLE. SCHEDULED MEDS ADMINISTERED TO PT. PT EDUCATED ON DIET. CONTINUE TO MONITOR PT. DENIES ANY FURTHER NEEDS AT THIS TIME.
[2019-10-21 05:31] VITALS: BP 149/89
[2019-10-21 05:34] LABS: HEMATOCRIT 30.4 % (37.0-47.0)
[2019-10-21 05:41] LABS: HEMOGLOBIN 10.6 gm/dL (12.0-15.0)
[2019-10-21 08:30] VITALS: BP 126/95
--- NOTE | 2019-10-21 10:53 | HC ---
[facility] [place] [address] CONSULTATION Name: BITA CLAY Room #: 214-P [facility] IN M.R.#: [id number] Admission: 10/19/19 Attend Phys: Conner Florian MD Discharge: Date of : 31 Report #: [id number] THIS REPORT FOR: cc: Conner Florian MD, Stanley P. MD Singh, Dushyant MD ~ CC: Conner Florian GASTROINTESTINAL CONSULTATION REASON FOR CONSULTATION: GI bleeding. CONSULTING PHYSICIAN: Dr. Conner Florian. HISTORY OF PRESENT ILLNESS: This is an 89-year-old female, daughter at bedside, admitted via the Emergency Room with a GI bleed. She reports bright red and dark red stools over the past 24 hours. She has had a total of 8 bowel movements and out of which, 6 during the last 2-3 hours. However, this has slowed down. She has had 1 bowel movement for nurse this morning. She underwent a bleeding scan that was unremarkable. Of note, she has seen my associate, Dr. Krishnan 2 weeks ago, who performed an EGD and colonoscopy. Per their report, EGD was normal. Colonoscopy had polyps that were removed. There was also diverticular disease noted at that time. It was presumed that she had diverticular bleed. On further questioning, she reports sudden onset of painless rectal bleeding. REVIEW OF SYSTEMS: As noted in HPI and positive for fatigue, otherwise 10-point review of systems was obtained and negative. PAST MEDICAL AND SURGICAL HISTORY: Reviewed and noted. SOCIAL HISTORY: Denies tobacco, alcohol or illegal drug use. FAMILY HISTORY: There are no family members with colorectal cancer or other GI malignancy. ALLERGIES AND MEDICATIONS: Reviewed and noted. PHYSICAL EXAMINATION: GENERAL: Alert and oriented to time, place and person, appears in severe distress. VITAL SIGNS: Tachycardic, but hemodynamically stable, afebrile. HEAD: Normocephalic, atraumatic head. EYES: Pupils equal, round and reactive to light and accommodation. Extraocular movements intact. Pallor present, no icterus. [facility] [address] [place] [address] CONSULTATION Name: BITA CLAY Room #: 214-[facility] IN M.R.#: [id number] Admission: 10/19/19 Attend Phys: Conner Florian MD Discharge: Date of : 31 Report #: [id number] NECK: Supple. Midline trachea. Thyroid not palpable. CARDIOVASCULAR: Tachycardic. No murmurs appreciated. RESPIRATORY: Chest clear to auscultation bilaterally. ABDOMEN: Soft, nontender, nondistended. Bowel sounds present. EXTREMITIES: No cyanosis, clubbing or edema. SKIN: Warm, dry, no rashes. NEUROLOGIC: Cranial nerves 2 through 12 grossly intact. No focal deficits. LABORATORY DATA: Hemoglobin 6.4, currently, receiving 2 units transfusion. Bleeding scan negative. White count 6.1, platelets 220. INR 1.0. Sodium 130, creatinine 0.7. DIAGNOSTIC IMPRESSION: 1. Gastrointestinal bleed. Clinical presentation is suspicious/typical for diverticular bleed. 2. Acute blood loss anemia. Hemoglobin 6.4, currently receiving 2 units transfusion. 3. History of diverticulosis. She underwent a colonoscopy 2 weeks ago by my associate, Dr. Krishnan for similar presentation and was noted to have diverticular disease. RECOMMENDATIONS: 1. Agree with 2 units transfusion. Goal hemoglobin should be 8.0. 2. Request iron consultation. If rebleeds, then repeat tagged RBC scan. If tagged RBC scan is positive, then to proceed with embolization. 3. Surgical consultation also appropriate, if ongoing bleeding continues. 4. There is no role for colonoscopy in setting of lower GI bleed from diverticular disease. In fact, she has had a colonoscopy 2 weeks ago. 5. I doubt upper GI source of bleeding, since the patient had a negative EGD 2 weeks ago. I do recommend starting Protonix 40 mg IV daily. Thank you for allowing me to participate in the patient. We will continue to follow along. <ELECTRONICALLY SIGNED> By: Andrei Torrez MD 10/21/19 [id number] Andrei Torrez MD /nt
--- NOTE | 2019-10-21 17:00 | NUR ---
pt is A&OX3, pt starts eat soft diet, pt denies pain, n/v and syncope today, pt 's vs are stable at this time.
[2019-10-21 17:16] VITALS: BP 117/76
[2019-10-21 20:06] VITALS: BP 111/52
[2019-10-22 04:25] VITALS: BP 138/69
[2019-10-22 04:53] LABS: HEMATOCRIT 29.1 % (37.0-47.0); MCH 31.3 pg (26.0-34.0); MCHC 34.3 g/dL (28.0-37.0); RBC 3.19 mil/uL (4.20-5.00); RDW 15.8 % (10.5-14.5); WBC 7.2 thou/uL (4.0-11.0)
[2019-10-22 04:55] LABS: MCV 91.2 fL (80.0-100.0)
--- NOTE | 2019-10-22 05:15 | NUR ---
ASSUMED PT CARE AROUND 192 PT RESING IN BED. PT HAD ZERO C/O PAIN OR N/V/D. PT STATED SHE WAS READY TO GO HOME. ADVISED PT THAT PHYSICIAN MONITORING STOOL. CONTACTED PHYSICIAN TO GET ONETIME ORDER FOR SLEEP AID AND PATIENT WAS ABLE TO REST THRU NIGHT. PATIENT HAD TOTAL OF 4 STOOLS LAST NIGHT. PT IS PROGRESSING TOWARD DISCHARGE. WILL CONTINUE MONITORING PER PHYSICIAN ORDERS AND PATIENT PLAN OF CARE.
[2019-10-22 07:20] VITALS: BP 131/68
--- NOTE | 2019-10-22 10:14 | NUR ---
Met with patient and discussed with therapy and phys. Patient lives at home alone in multi level home. She reports stair glide to lower level of home but steps to her bedroom. She reports prev no difficulty with steps. Patient reports has a walker at home. her dtr is involved in her care and checks on patient daily. Patient with syncopal episode and would benefit from cont therapy. patient strongly wants to dc to [facility]. Discussed with liason. Casemgt following.
[2019-10-22 11:00] VITALS: BP 112/67
--- NOTE | 2019-10-22 12:34 | NUR ---
AAOX4. CALM, COOPERATIVE. ANXIOUS FOR DISCHARGE. PT, OT REPORT SHE IS VERY WEAK AND UNSTEADY ON HER FEET WITH A THREE-STORY HOME. DISCHARGE CANCELLED. FURTHER TESTS ORDERED. SR/ST PER TELE. FALL PRECAUTIONS IN PLACE. WILL CONTINUE TO FOLLOW CLOSELY.
--- NOTE | 2019-10-22 14:29 | NUR ---
[facility] accepting of patient. Dtr at bedside and aware. Dr Florian to order transfer if stable.
--- NOTE | 2019-10-22 14:41 | NUR ---
TRANSFER TO PLANNED. WAITING FOR ORDERS. WILL CONTINUE TO FOLLOW.
[2019-10-22 17:00] VITALS: BP 125/72
[2019-10-22] MEDS ORDERED: GAVILAX238 GM PO (19:33)
== END 2019-10-22 21:26 | DRG 100 ==
LOC: ER 06:06 → 2N 10:22 → EROBS 10:22 → 2N 13:02
PROVIDERS: Emergency Medicine; Internal Medicine; Surgery; ADMIT Internal Medicine
PROC: 02HV33Z Insertion of Infusion Device into Superior Vena Cava, Percutaneous Approach (ICD-10-PCS; principal; 2019-10-20)
PROC: 30233N1 Transfusion of Nonautologous Red Blood Cells into Peripheral Vein, Percutaneous Approach (ICD-10-PCS; principal; 2019-10-20)
DX: G40.909 Epilepsy, unspecified, not intractable, without status epilepticus (principal); K57.91 Diverticulosis of intestine, part unspecified, without perforation or abscess with bleeding; D62 Acute posthemorrhagic anemia; E22.2 Syndrome of inappropriate secretion of antidiuretic hormone; S09.90XA Unspecified injury of head, initial encounter; I10 Essential (primary) hypertension; M19.90 Unspecified osteoarthritis, unspecified site; C67.9 Malignant neoplasm of bladder, unspecified; R10.2 Pelvic and perineal pain; W18.39XA Other fall on same level, initial encounter; T14.8XXA Other injury of unspecified body region, initial encounter; I95.9 Hypotension, unspecified; E78.5 Hyperlipidemia, unspecified; S40.022A Contusion of left upper arm, initial encounter; M54.5 Low back pain; K59.09 Other constipation; M48.061 Spinal stenosis, lumbar region without neurogenic claudication; M41.9 Scoliosis, unspecified; G89.29 Other chronic pain; Z86.73 Personal history of transient ischemic attack (TIA), and cerebral infarction without residual deficits; Y93.89 Activity, other specified; Y92.89 Other specified places as the place of occurrence of the external cause; Z90.11 Acquired absence of right breast and nipple; Y99.8 Other external cause status; Z79.82 Long term (current) use of aspirin; Z79.899 Other long term (current) drug therapy; Z88.5 Allergy status to narcotic agent; Z88.8 Allergy status to other drugs, medicaments and biological substances
CPT/HCPCS: 10081; 27000

== ENCOUNTER 2019-10-22 13:44 | Inpatient (IN) | payer OTHER ==
[~2019-10-22] VITALS: Ht 160 cm; Wt 51.3 kg
--- NOTE | ~2019-10-22 | PLAN ---
[facility] [place] [address] REHAB UNIT PLAN OF CARE Name: BITA CLAY Room #: 504-1 ADM IN M.R.#: [id number] Admission: 10/22/19 Attend Phys: Tyler Lamas MD Discharge: Date of : 31 Report #: [id number] THIS REPORT FOR: //name// CC: Tyler Florian DATE OF SERVICE: 10/24/2019 PROGRESS NOTE/OVERALL PLAN OF CARE SUBJECTIVE: The patient is seen back today in followup. She is in no distress. She is pleasant. Temperature 98, pulse 88, respirations 20, blood pressure 140/62. She is working in therapies with transfers, contact guard, gait min assist 10 feet with a front-wheeled walker. In occupational therapy, lower body dressing is mod assist with upper body dressing, min assist. Comprehension is mild. As far as cognition, she does have [id number] cognitive deficits, severe memory deficits. ASSESSMENT: An 89-year-old female with the following problem list: 1. Syncopal event, closed head injury. 2. Seizure disorder with abnormal EEG. 3. Multiple ecchymoses post fall. 4. Gastrointestinal bleed apparently diverticular bleed with acute blood loss anemia. 5. Hypertension. 6. History of spinal stenosis. 7. Past history of left caudate nucleus stroke. PLAN: The overall plan of care is based on the preadmission screen, post-admission physician evaluation and information garnered from therapy assessments. 1. Estimated length of stay is probably 10-14 days. 2. Medical prognosis is reasonably good. 3. Anticipated interventions includes the interdisciplinary acute inpatient rehabilitation program. 4. Anticipated functional outcomes would be for the patient to become modified independent with transfers, mobility, ADLs and cognition, so she can hopefully return back to her prior living situation. 5. Discharge destination is back to the home setting. She does have a daughter that checks in on her. She will likely need some increased assistance at home. 6. Expected therapy by discipline includes PT, OT and speech 1 hour per day [address] [address] REHAB UNIT PLAN OF CARE Name: CLAYBITA Room #: 504-1 ADM IN .R.#: [id number] Admission: 10/22/19 Attend Phys: Tyler Lamas MD Discharge: Date of : 31 Report #: [id number] each five days a week throughout the duration of the acute inpatient rehabilitation stay. By: [id number] Tyler Lamas MD /PMT
--- NOTE | ~2019-10-22 | PLAN ---
[facility] [place] [address] REHAB UNIT PLAN OF CARE Name: BITA CLAY Room #: 504-1 ADM IN M.R.#: [id number] Admission: 10/22/19 Attend Phys: Tyler Lamas MD Discharge: Date of : 31 Report #: [id number] THIS REPORT FOR: //name// CC: Tyler Florian HISTORY AND PHYSICAL AND POST-ADMISSION PHYSICIAN EVALUATION HISTORY OF PRESENT ILLNESS: The patient is an 89-year-old white female admitted for acute in-hospital inpatient rehabilitation. Please see my full consult dictation from yesterday. The patient has a history of apparent fall at home when she was found down, confused, multiple bruises including her right forehead. She was able to activate her Life Alert. She was unable to ambulate. She was diagnosed with a syncopal episode with closed head injury. She also had a right groin injury. She was noted to have a seizure disorder and had abnormal EEG with abnormality over the left temporoparietal area consistent with a structural abnormality. She has a past history of a left caudate CVA. She also had some acute blood loss anemia, thought to be secondary to a diverticular bleed with GI and Surgery following. She had a significant decline from her premorbid functional status and was admitted for acute in-hospital inpatient rehabilitation. PAST MEDICAL HISTORY, FAMILY HISTORY, ALLERGIES, SOCIAL HISTORY: Please see the history and physical documentation. MEDICATIONS: Please see the MAR. REVIEW OF SYSTEMS: No complaints of chest pain, shortness of breath or abdominal discomfort. Denies any significant headache. PHYSICAL EXAMINATION: GENERAL: Pleasant 89-year-old white female in no obvious distress. The patient was seen earlier. VITAL SIGNS: Temperature 36.7, pulse 109, respirations 20, blood pressure 134/73. She was alert. She has some forehead ecchymosis. Face is otherwise symmetric. CHEST: Sounded clear to auscultation. CARDIAC: Regular rate and rhythm. ABDOMEN: Bowel sounds positive, nontender. GENITOURINARY AND RECTAL: Deferred. She follows 1-step commands with some latency to her responses. She has an ecchymosis over the right elbow. She does have functional range of motion of the upper extremities with strength 3+ to 4-/5. DTRs are trace to 1. Lower extremities, no focal calf swelling, functional range of motion, strength is grade 3+ to 4-/5. DTRs are trace to 1. She has been min assist with basic transfers and has ambulated a short distance [place] [address] REHAB UNIT PLAN OF CARE Name: BITA CLAY Room #: 504-1 [facility] IN ..#: [id number] Admission: 10/22/19 Attend Phys: Tyler Lamas MD Discharge: Date of : 31 Report #: [id number] ASSESSMENT: An 89-year-old white female with the following problems: 1. Syncopal event with closed head injury. 2. Seizure disorder with abnormal EEG. 3. Multiple ecchymoses post fall. 4. Gastrointestinal bleed, apparently diverticular bleed with acute blood loss anemia. 5. Hypertension. 6. History of spinal stenosis. 7. Past history of a left caudate nucleus stroke. PLAN: The patient is admitted for acute in-hospital inpatient rehabilitation. From a post-admission physician evaluation perspective, there are no relevant changes since the preadmission screening. Please see the above review of prior and current medical and functional conditions and comorbidities. Please see the patient's previous and current functional status. As far as risk of complications, the patient has multiple medical comorbidities as noted above. Initial plan of care involves the interdisciplinary acute inpatient rehabilitation program. Measurable functional goals would include maximizing her independence with mobility and ADLs and improvement in cognition, so she can hopefully return back to her prior living situation. Prognosis is reasonably good. Estimated length of stay probably 10-14 days. Potential barriers would include her multiple medical comorbidities and decreased functional status. The patient meets diagnostic criteria for an acute in-hospital inpatient rehabilitation stay. She meets the medical necessity criteria. We will have the education sales consultant physicians continue to follow up. She does have the tolerance for therapies and as appropriate discharge goals back to the home setting. By: [id number] Tyler Lamas MD /nt
[~2019-10-22 13:44] MED LIST changes: +ALIVE WOMEN'S1 EAC3 PO; +BYSTOLIC10 MG PO; +MAGNESIUM250 M1 PO
[2019-10-22] MEDS ORDERED: GAVILAX238 GM PO (19:33)
[2019-10-22 21:29] VITALS: BP 130/63
[2019-10-23 05:56] LABS: HEMATOCRIT 30.5 % (37.0-47.0); HEMOGLOBIN 10.3 gm/dL (12.0-15.0); MCH 31.2 pg (26.0-34.0); MCHC 33.8 g/dL (28.0-37.0); MCV 92.1 fL (80.0-100.0); RBC 3.31 mil/uL (4.20-5.00); WBC 6.1 thou/uL (4.0-11.0)
[2019-10-23 06:08] LABS: CALCIUM 8.4 mg/dL (8.5-10.1); CREATININE 0.9 mg/dL (0.6-1.0); POTASSIUM 3.6 mmol/L (3.5-5.1)
[2019-10-23 09:06] VITALS: BP 134/73
[2019-10-23 19:41] VITALS: BP 140/62
[2019-10-24 04:50] LABS: HEMATOCRIT 28.4 % (37.0-47.0); HEMOGLOBIN 9.8 gm/dL (12.0-15.0); MCH 31.9 pg (26.0-34.0); MCHC 34.4 g/dL (28.0-37.0); RBC 3.06 mil/uL (4.20-5.00); WBC 8.5 thou/uL (4.0-11.0)
[2019-10-24 08:00] VITALS: BP 149/86
[2019-10-24 19:05] VITALS: BP 131/54
[2019-10-25 20:00] VITALS: BP 120/70
[2019-10-26 07:43] VITALS: BP 137/62
[2019-10-26 19:05] VITALS: BP 136/67
[2019-10-27 07:30] VITALS: BP 147/80
[2019-10-27 07:55] VITALS: BP 147/80
[2019-10-27 09:50] VITALS: BP 111/50
[2019-10-27 10:30] LABS: HEMATOCRIT 29.3 % (37.0-47.0); HEMOGLOBIN 9.9 gm/dL (12.0-15.0); MCV 94.2 fL (80.0-100.0); RBC 3.11 mil/uL (4.20-5.00); RDW 15.6 % (10.5-14.5); WBC 9.8 thou/uL (4.0-11.0)
[2019-10-27 10:39] LABS: ANION GAP 5 mmol/L (7-16); BUN 14 mg/dL (7-18); CALCIUM 9.2 mg/dL (8.5-10.1); CHLORIDE 99 mmol/L (98-107); CO2 30 mmol/L (21-32); CREATININE 0.9 mg/dL (0.6-1.0); GLUCOSE 130 mg/dL (74-106); POTASSIUM 4.5 mmol/L (3.5-5.1); SODIUM 134 mmol/L (136-145)
[2019-10-27 10:49] LABS: SGOT 47 U/L (15-37); SGPT 100 U/L (30-65); TOTAL BILIRUBIN 0.5 mg/dL (<0.1-1.0); TOTAL PROTEIN 5.9 g/dL (6.4-8.2); TROPONIN-I <0.06 ng/mL (<0.06)
[2019-10-27 19:49] VITALS: BP 112/49
[2019-10-28 08:00] VITALS: BP 139/76
[2019-10-28 19:17] VITALS: BP 121/63
[2019-10-29 07:37] VITALS: BP 125/64
[2019-10-29 08:03] LABS: HEMATOCRIT 30.3 % (37.0-47.0); HEMOGLOBIN 10.1 gm/dL (12.0-15.0); MCH 31.5 pg (26.0-34.0); MCHC 33.2 g/dL (28.0-37.0); MCV 94.8 fL (80.0-100.0); RBC 3.2 mil/uL (4.20-5.00); RDW 15.8 % (10.5-14.5); WBC 9.2 thou/uL (4.0-11.0)
[2019-10-29 08:17] LABS: % SATURATION 12 % (20-39); IRON 31 ug/dL (50-170); TIBC 267 ug/dL (250-450)
[2019-10-29 08:18] LABS: ALBUMIN 2.8 g/dL (3.4-5.0); CALCIUM 8.7 mg/dL (8.5-10.1); CREATININE 0.7 mg/dL (0.6-1.0); POTASSIUM 4.3 mmol/L (3.5-5.1); TOTAL BILIRUBIN 0.4 mg/dL (<0.1-1.0); TOTAL PROTEIN 6.1 g/dL (6.4-8.2)
[2019-10-29 09:20] LABS: FOLIC ACID 36.8 ng/mL (8.6-58.9)
[2019-10-29 18:55] VITALS: BP 141/69
--- NOTE | 2019-10-29 20:11 | HC ---
[facility] [place] [address] CONSULTATION Name: BITA CLAY Room #: 504 ADM IN M.R.#: [id number] Admission: 10/22/19 Attend Phys: Tyler Lamas MD Discharge: Date of : 32 Report #: [id number] THIS REPORT FOR: cc: Conner Florian MD, Stanley P. MD Deutch, Neal B. PhD ~ CC: Tyler Florian DATE OF SERVICE: 10/27/2019 BEHAVIORAL STATUS EXAM ATTENDING PHYSICIAN: Tyler Lamas MD CONSULTING PHYSICIAN: Alex Servin, PhD CLINICAL PRESENTATION: The patient is an 89-year-old female admitted to the rehabilitation unit at [facility] for comprehensive inpatient rehabilitation program. She is reported to have been living independently at her home when she sustained a fall and head trauma. The patient fell in her bathroom. She was wearing a Life Alert, and able to contact emergency services. Her assessment on admission to the rehab unit is a syncopal event, closed head injury, seizure disorder with abnormal EEG, multiple ecchymosis post-fall, gastrointestinal bleed, apparently diverticular bleed with acute blood loss anemia, hypertension, history of spinal stenosis, and a past history of a left caudate nucleus stroke. A complete description of her medical condition and history along with medications can be found in her medical record. Neuropsychological consultation was requested to provide assistance in the assessment of cognitive and emotional status and to provide recommendations and services. Prior to this most recent admission, she was living alone in her home. She had 2 children. Her son is . Her daughter is very supportive and currently a Jose at [employer] in the [employer] business. Her daughter reports helping her mother with management of medication. She has a history of multiple falls and is living in a 4-level home with two chair lifts. Her daughter indicates plans to place another chair lift. The patient is reported to have had a previous stroke in 03/2018. At which time, she also sustained fall and head trauma. The patient is a high school graduate with 2 years of college. 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 TECHNIQUES UTILIZED: Clinical interview, review of medical records, staff [facility] [address] [place] [address] CONSULTATION Name: BITA CLAY Room #: 504-1 ADM IN M.R.#: [id number] Admission: 10/22/19 Attend Phys: Tyler Lamas MD Discharge: Date of : 31 Report #: [id number] consultation and behavioral observation, mini mental status exam 2 standard version and family interview -- daughter. EXAMINATION FINDINGS: The patient was pleasant and cooperative with the assessment. She accurately described what occurred prior to her hospitalization. The patient had a great deal of difficulty with verbal expression because of laryngitis. She was coughing and quite hoarse during my interview. Her symptoms are reported to include decreased appetite. The patient and her daughter do not report difficulty with cognitive functioning. The patient denies anxiety or depression. Her daughter does not report observing any differences in her functioning or cognitive deficits since the fall. Her performance on the MMSE 2 brief version was extremely low with a raw score of 16. She was 3/3 for initial registration, 3/5 for orientation to time, 3/[address] and 0/3 for immediate recall of 3 items after a brief time delay and distraction. The patient was able to do better when given multiple choice responses to assist immediate recall. Her performance on the MMSE 2 standard version was of 22/30, which is a T score of 32 and percentile rank of 4. She was 5/5 for serial sevens, 2/2 for naming, 1/1 for repetition, 3/3 for auditory comprehension. She could read and follow single command. She was able to dictate a sentence. She appeared quite uncomfortable as a result of being hoarse and upper respiratory symptoms. Her daughter indicates plans to have the patient return to her home. 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 RECOMMENDATIONS: The patient will benefit from further neuropsychological testing to clarify cognitive status. Her daughter is planning for her to return home following her hospitalization. The patient will need increased supervision in order to maintain safety upon her return home. Continued speech therapy to assist with compensatory strategies for deficits in cognition. Thank you very much for allowing me to provide the consultation on this patient. <ELECTRONICALLY SIGNED> By: Alex Servin, PhD 10/29/192010 1614 1816 Alex Servin, PhD /nt
[2019-10-30 06:46] LABS: ALBUMIN 2.8 g/dL (3.4-5.0); CALCIUM 8.7 mg/dL (8.5-10.1); CREATININE 0.7 mg/dL (0.6-1.0); POTASSIUM 4.3 mmol/L (3.5-5.1); TOTAL BILIRUBIN 0.5 mg/dL (<0.1-1.0); TOTAL PROTEIN 6.1 g/dL (6.4-8.2)
[2019-10-30 07:45] VITALS: BP 152/83
[2019-10-30 16:59] VITALS: BP 152/83
[2019-10-30 19:00] VITALS: BP 150/86
[2019-10-31 07:24] LABS: HEMOGLOBIN 10.5 gm/dL (12.0-15.0); MCH 30.9 pg (26.0-34.0); MCHC 32.8 g/dL (28.0-37.0); MCV 94.4 fL (80.0-100.0); RBC 3.39 mil/uL (4.20-5.00); RDW 15.4 % (10.5-14.5); WBC 9.2 thou/uL (4.0-11.0)
[2019-10-31 07:49] LABS: DIRECT BILIRUBIN < 0.1 mg/dL (<0.1-0.2); SGOT 42 U/L (15-37); SGPT 107 U/L (30-65); TOTAL BILIRUBIN 0.3 mg/dL (<0.1-1.0); TOTAL PROTEIN 6.4 g/dL (6.4-8.2)
[2019-10-31 08:20] VITALS: BP 158/83
[2019-10-31 19:31] VITALS: BP 118/62
[2019-11-01 08:00] VITALS: BP 111/63
[2019-11-01 08:02] LABS: HEMATOCRIT 30.2 % (37.0-47.0); MCH 31.5 pg (26.0-34.0); MCHC 33.2 g/dL (28.0-37.0); MCV 94.7 fL (80.0-100.0); RBC 3.19 mil/uL (4.20-5.00); RDW 15.9 % (10.5-14.5); WBC 8.8 thou/uL (4.0-11.0)
[2019-11-01 08:14] LABS: ALBUMIN 2.8 g/dL (3.4-5.0); CALCIUM 9.1 mg/dL (8.5-10.1); CREATININE 0.7 mg/dL (0.6-1.0); POTASSIUM 4.7 mmol/L (3.5-5.1); TOTAL BILIRUBIN 0.4 mg/dL (<0.1-1.0); TOTAL PROTEIN 6.2 g/dL (6.4-8.2)
[2019-11-01 13:13] LABS: BE(vivo) 0.3 mmol/L (-2 to +3); HCO3 23.4 mmol/L (22.0-26.0); PCO2 32.1 mmHg (35.0-45.0); PO2 109.8 mmHg (80.0-100.0); pH 7.481 (7.360-7.450); sO2 98.3 % (92.0-98.0)
--- NOTE | 2019-11-01 16:19 | EKG ---
[facility] [place] [address] ELECTROCARDIOGRAM REPORT Name: BITA CLAY Room #: [facility] ADM IN M.R.#: [id number] Admission: 10/22/19 Attend Phys: Tyler Lamas MD Discharge: Date of : 31 Report #: [id number] THIS REPORT FOR: cc: Conner Florian MD, Stanley P. MD Couchonnal, Luis F. MD ~ THIS REPORT FOR: //name// [facility] Test Date: 2019-11-01 Test Time: 12:21:22 Pat Name: BITA CLAY Department: Room: [facility] Gender: F Campground Hand: Ba SIDHU : 1930 Requested By: Serina Hooks Order Number: [id number] MD: Rodrigo Yeh Measurements Intervals [place] Rate: 121 P: 1 TX: 156 QRS: -38 QRSD: 90 T: 77 QT: 310 QTc: 440 Interpretive Statements Sinus tachycardia Probable left atrial enlargement Inferior infarct, old Compared to ECG 10/19/2019 06:21:45 Myocardial infarct finding now present Sinus rhythm no longer present Left-axis deviation no longer present Electronically Signed On 11-01-2019 16:18:04 AUTOMATIC SCREWMAKER by Rodrigo Yeh [email or web address] <ELECTRONICALLY SIGNED> By: Rodrigo Yeh MD 11/01/19 1618 1221 1221 Rodrigo Yeh MD /EPI
[2019-11-01 17:07] LABS: BE(vivo) -3.4 mmol/L (-2 to +3); HCO3 19.4 mmol/L (22.0-26.0); PCO2 27.7 mmHg (35.0-45.0); PO2 90.4 mmHg (80.0-100.0); pH 7.463 (7.360-7.450); sO2 97.4 % (92.0-98.0)
[2019-11-01 21:11] VITALS: BP 120/73
[2019-11-02 06:12] LABS: HEMATOCRIT 29.6 % (37.0-47.0); HEMOGLOBIN 9.7 gm/dL (12.0-15.0); MCH 30.7 pg (26.0-34.0); MCHC 32.6 g/dL (28.0-37.0); MCV 93.9 fL (80.0-100.0); PLATELET COUNT 399 thou/uL (150-400); RBC 3.15 mil/uL (4.20-5.00); RDW 15.8 % (10.5-14.5)
[2019-11-02 06:25] LABS: ALBUMIN 2.7 g/dL (3.4-5.0); CALCIUM 8.8 mg/dL (8.5-10.1); CREATININE 0.7 mg/dL (0.6-1.0); POTASSIUM 4.3 mmol/L (3.5-5.1); TOTAL BILIRUBIN 0.5 mg/dL (<0.1-1.0)
[2019-11-02 07:36] VITALS: BP 167/86
[2019-11-02 08:17] LABS: ABSOLUTE NEUTROPHILS 5.4 thou/uL (1.4-8.2); ANISOCYTOSIS 1+; METAMYELOCYTES 2 %
--- NOTE | 2019-11-02 10:29 | 2DMMODE ---
[address] [address] 2 D/M-MODE ECHOCARDIOGRAM Name: BITA CLAY Room #: 504-1 ADM IN M.R.#: [id number] Admission: 10/22/19 Attend Phys: Tyler Lamas MD Discharge: Date of : 31 Report #: [id number] THIS REPORT FOR: cc: Conner Florian MD, Stanley P. MD Lundgren, Craig H. MD [facility] ~ APPROVED REPORT Study performed: 11/02/2019 09:38:21 EXAM: Comprehensive 2D, Doppler, and color-flow Echocardiogram Patient Location: Bedside Room #: 504 Status: routine BSA: 1.50 HR: 106 bpm BP: 167/86 mmHg Rhythm: Tachycardia Other Information Study Quality: Fair Indications Syncope Hypertension/HDD 2D Dimensions IVC: 14.00 mm Aortic Valve AoV Peak Lew.: 1.19 m/s AO Peak Gr.: 5.68 mmHg LVOT Max P.50 mmHg LVOT Max V: 0.79 m/s Pulmonary Valve PV Peak Lew.: 0.85 m/s PV Peak Gr.: 2.86 mmHg Tricuspid Valve TR Peak Lew.: 2.77 m/s TR Peak Gr.: 30.63 mmHg PA Pressure: 36.00 mmHg Left Ventricle The left ventricle is normal size. Regional wall motion is not well [address] [place] [address] 2 D/M-MODE ECHOCARDIOGRAM Name: BITA CLAY Room #: 504-1 ADM IN M.R.#: [id number] Admission: 10/22/19 Attend Phys: Tyler Lamas, Discharge: Date of : 31 Report #: [id number] visualized but grossly normal. There is normal left ventricular wall thickness. The left ventricular systolic function is normal. The left ventricular ejection fraction is within the normal range. LVEF is 55-60%. Mild diastolic dysfunction is present (impaired relaxation pattern). Right Ventricle The right ventricle is normal size. The right ventricular systolic function is normal. Atria The left atrium size is normal. The right atrium size is normal. Aortic Valve The aortic valve is normal in structure. Mild aortic regurgitation. There is no aortic valvular stenosis. Mitral Valve The mitral valve is normal in structure. Trace mitral regurgitation. No evidence of mitral valve stenosis. Tricuspid Valve The tricuspid valve is normal in structure. There is mild tricuspid regurgitation. Estimated PAP 35 mmHg. There is mild pulmonary hypertension. Pulmonic Valve The pulmonary valve is normal in structure. There is no pulmonic valvular regurgitation. Great Vessels The aortic root is normal in size. IVC is normal in size and collapses >50% with inspiration. Pericardium There is no pericardial effusion. <Conclusion> The left ventricular systolic function is normal. LVEF is 55-60%. Mild diastolic dysfunction The aortic valve is normal in structure. Mild aortic regurgitation, no stenosis. The mitral valve is normal in structure. Trace mitral regurgitation. [facility] [address] [place] [address] 2 D/M-MODE ECHOCARDIOGRAM Name: BITA CLAY Room #: 504-1 ADM IN M.R.#: [id number] Admission: 10/22/19 Attend Phys: Tyler Lamas, Discharge: Date of : 32 Report #: [id number] There is mild tricuspid regurgitation. Estimated pulmonary artery pressure of 35 mmHg. There is no pericardial effusion. <ELECTRONICALLY SIGNED> By: Jovani Huang MD, FACC 11/02/19 1027 102 Jovani Huang MD, FACC /INF
[2019-11-02 13:27] VITALS: BP 152/83
[2019-11-02] MEDS ORDERED: PREDNISONE 10 M10 M1 PO (13:39)
[2019-11-02] MEDS ORDERED: BYSTOLIC10 MG PO (13:39)
[2019-11-02] MEDS ORDERED: FUROSEMIDE 20 M20 MG PO (13:39)
[2019-11-02 14:30] VITALS: BP 152/83
[2019-11-02 16:00] VITALS: BP 152/83
== END 2019-11-02 16:01 | disposition home health service (06) | DRG 914 ==
LOC: ENTRNSPT 11-02 15:39 → EDTRNSPTSTS 11-02 15:41
PROVIDERS: Internal Medicine; Nurse Practitioner; Nurse Practitioner Family; ADMIT Physical Medicine & Rehabilitation
DX: S09.90XA Unspecified injury of head, initial encounter (principal); D62 Acute posthemorrhagic anemia; K92.2 Gastrointestinal hemorrhage, unspecified; E44.1 Mild protein-calorie malnutrition; R55 Syncope and collapse; G40.909 Epilepsy, unspecified, not intractable, without status epilepticus; M48.00 Spinal stenosis, site unspecified; R58 Hemorrhage, not elsewhere classified; R41.9 Unspecified symptoms and signs involving cognitive functions and awareness; M19.90 Unspecified osteoarthritis, unspecified site; G89.29 Other chronic pain; M54.5 Low back pain; N18.3 Chronic kidney disease, stage 3 (moderate); I12.9 Hypertensive chronic kidney disease with stage 1 through stage 4 chronic kidney disease, or unspecified chronic kidney disease; Z90.11 Acquired absence of right breast and nipple; Z88.8 Allergy status to other drugs, medicaments and biological substances; Z86.73 Personal history of transient ischemic attack (TIA), and cerebral infarction without residual deficits; Z85.3 Personal history of malignant neoplasm of breast; Z68.20 Body mass index [BMI] 20.0-20.9, adult; W18.39XA Other fall on same level, initial encounter; Y93.89 Activity, other specified; Y92.098 Other place in other non-institutional residence as the place of occurrence of the external cause; Y99.8 Other external cause status
CPT/HCPCS: 10112

== ENCOUNTER → 2021-05-11 | Outpatient (CLI) | payer OTHER ==
[~2021-05-11] MED LIST changes: +FUROSEMIDE 20 M20 MG PO; +GAVILAX238 GM PO; +PREDNISONE 10 M10 M1 PO
== END ==
LOC: RAD 15:14
PROVIDERS: ATTEND Internal Medicine
DX: R22.41 Localized swelling, mass and lump, right lower limb (principal)